=== PATIENT | female | born 1940 | race African-American/Black ===

== ENCOUNTER 2019-02-26 13:07 | Emergency (ER) | payer MEDICARE, MEDICAID ==
[~2019-02-26] VITALS: Ht 157.5 cm; Wt 78.5 kg
[2019-02-26 14:10] LABS: Basophils # (auto) 0 uL; Basophils % (auto) 0.5 % (0.0-2.0); Eosinophils # (auto) 0 uL; Eosinophils % (auto) 0.5 % (0.0-7.0); Hematocrit 44.4 % (36.0-46.0); Hemoglobin 14.3 g/dL (12.2-16.2); Lymphocytes # (auto) 1.3 uL; Lymphocytes % (auto) 17.8 % (10.0-50.0); Mean Corpuscular Hemoglobin 27.7 pg (28.0-32.0); Mean Corpuscular Hgb Conc. 32.1 g/dL (32.0-36.0); Mean Corpuscular Volume 86.4 fL (80.0-100.0); Monocytes # (auto) 0.3 uL; Monocytes % (auto) 4.4 % (0.0-12.0); Neutrophils # (auto) 5.5 uL; Neutrophils % (auto) 76.8 % (37.0-80.0); Platelet Count (auto) 228 10^3/uL (140-450); Red Blood Cells 5.14 10^6/uL (4.0-5.20); Red Cell Distribution Width 13.9 % (11.8-14.3); White Blood Cell 7.1 10^3/uL (4.4-10.8)
[2019-02-26 14:31] LABS: Albumin 4.3 g/dL (3.4-5.0); Anion Gap 7 (5-15); Blood Urea Nitrogen 10 mg/dL (7-18); Calcium 9.2 mg/dL (8.5-10.1); Carbon Dioxide 24 mmol/L (21-32); Chloride 109 mmol/L (98-107); Glucose 175 mg/dL (74-106); Potassium 3.8 mmol/L (3.5-5.1); Sodium 140 mmol/L (136-145)
[2019-02-26 14:36] LABS: Alanine Aminotransferase 24 U/L (13-56); Alkaline Phosphatase 57 U/L (45-117); Aspartate Aminotransferase 15 U/L (15-37); BUN/Creatinine Ratio 10.8; Bilirubin, Total 0.3 mg/dL (0.2-1.0); GFR African American 75 mL/min; GFR Non-African American 62 mL/min; Total Protein 8.6 g/dL (6.4-8.2)
[2019-02-26] MEDS: LORazepam 0.5 MG TAB PO ONE (14:45)
[2019-02-26] MEDS ORDERED: LORazepam 0.5 MG TAB PO ONE (16:00)
[2019-02-26 16:01] VITALS: BP 180/77
[2019-02-26 16:39] LABS: Urine WBC None Seen /hpf (0 - 5)
[2019-02-26 16:48] LABS: Urine Bacteria NONE SEEN /hpf (None Seen); Urine Blood Negative /uL (Negative); Urine Specific Gravity 1.009 (1.001-1.035)
== END 2019-02-26 17:16 | disposition home or self-care (01) ==
LOC: ER 13:13
DX: G40.909 Epilepsy, unspecified, not intractable, without status epilepticus (principal); F41.9 Anxiety disorder, unspecified; R42 Dizziness and giddiness
CPT/HCPCS: 36415; 70450; 71045; 80053; 81001; 84484; 85025

== ENCOUNTER 2024-07-01 20:46 | Emergency (ER) | payer MEDICARE, MEDICAID ==
[~2024-07-01] VITALS: Ht 157.5 cm; Wt 72.2 kg
--- NOTE | 2024-07-01 21:25 | ED.PDOC ---
HPI Comments 83 y.o female with PMHx of HTN and thyroid disease, presents to the ED for an evaluation of HTN x 2 weeks that is now associated with dizziness, nausea and SOB. Patient presents to the ED with blood pressure reading 224/86 although patient and caregiver reported pressure has been reading much higher than that at home, multiple times. Patient is compliant with all medications including today's doses. Patient denies any chest pain, nausea, vomiting, fever or chills. Time Seen by MD: 21:18 Primary Care Provider: DENIES Reviewed Notes: Nurses Notes, Medications, Allergies Allergies: Coded Allergies: Acetaminophen (Verified Allergy, Severe, 02/26/19) Codeine (Verified Allergy, Severe, 02/26/19) Penicillins (Verified Allergy, Severe, 02/26/19) Information Source: Patient Mode of Arrival: Ambulatory Severity: Moderate Timing: Weeks (2) Duration: Since onset Onset: At Rest Cardiac Risk Factors: HTN PE Risk Factors: None History of: None Modifying Factors: Nothing Associated Signs and Symptoms: SOB Past Medical History PAST MEDICAL HISTORY: HTN, Seizures, Thyroid Surgical History: Thyroidectomy Surgical History (Other): neck and shoulder 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: 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 CUTTER Hx Family History Family History: Reviewed,noncontributory to illness Social History Smoker: Non-Smoker Alcohol: Denies ETOH Use Drugs: Denies Drug Use Lives In: Home Constitutional: denies: chills, diaphoresis, fatigue, fever, malaise, sweats, weakness, others EENTM: denies: blurred vision, double vision, ear bleeding, ear discharge, ear drainage, ear pain, ear ringing, eye pain, eye redness, hearing loss, mouth pain, mouth swelling, nasal discharge, nose bleeding, nose congestion, nose pain, photophobia, tearing, throat pain, throat swelling, voice changes, others Respiratory: reports: shortness of breath; denies: cough, hemoptysis, orthopnea, SOB at rest, SOB with excertion, stridor, wheezing, others Cardiovascular: denies: chest pain, dizzy spells, diaphoresis, Dyspnea on exertion, edema, irregular heart beat, left arm pain, lightheadedness, palpitations, PND, syncope, others Gastrointestinal: reports: nausea; denies: abdomen distended, abdominal pain, blood streaked bowels, constipated, diarrhea, dysphagia, difficulty swallowing, hematemesis, melena, poor appetite, poor fluid intake, rectal bleeding, rectal pain, vomiting, others Genitourinary: denies: abnormal vagina bleeding, burning, dyspareunia, dysuria, flank pain, frequency, hematuria, incontinence, pain, , vagina discharge, urgency, others Neurological: reports: dizziness; denies: fainting, headache, left sided numbness, left sided weakness, numbness, paresthesia, pre-existing deficit, right sided numbness, right sided weakness, seizure, speech problems, tingling, tremors, weakness, others Musculoskeletal: denies: back pain, gout, joint pain, joint swelling, muscle pain, muscle stiffness, neck pain, others Integumetry: denies: bruises, change in color, change in hair/nails, dryness, laceration, lesions, lumps, rash, wounds, others Allergic/Immunocompromised: denies: Difficulty Healing, Frequent Infections, Hives, Itching, others Hematologic/Lymphatic: denies: anemia, blood clots, easy bleeding, easy bruising, swollen glands, others Endocrine: denies: excessive hunger, excessive sweating, excessive thirst, excessive urination, flushing, intolerance to cold, intolerance to heat, unexplained weight gain, unexplained weight loss, others Psychiatric: denies: anxiety, bipolar disorder, depression, hopeless, panic disorder, schizophrenia, sleepless, suicidal, others All Other Systems: Reviewed and Negative Physical Exam General Appearance: No Apparent Distress, Normal HEENT: Normal ENT Inspection, Pharynx Normal, TMs Normal Neck: Full Range of Motion, Non-Tender, Normal, Normal Inspection Respiratory: Chest Non-Tender, Lungs Clear, No Accessory Muscle Use, No Respiratory Distress, Normal Breath Sounds Cardiovascular: No Edema, No JVD, No Murmur, No Gallop, Normal Peripheral Pulses, Regular Rate/Rhythm Breast Exam: Deferred Gastrointestinal: No Organomegaly, Non Tender, No Pulsatile Mass, Normal Bowel Sounds, Soft Genitalia: Deferred Pelvic: Deferred Rectal: Deferred Extremities: No calf tenderness, Normal capillary refill, Normal inspection, Normal range of motion, Non-tender, No pedal edema Musculoskeletal : Apperance: Normal Neurologic: Alert, sociology faculty member II-XII nml as Tested, No Motor Deficits, Normal Affect, Normal Mood, No Sensory Deficits Cerebellar Function: Normal Reflexes: Normal Skin: Dry, Normal Color, Warm Lymphatic: No Adenopathy Was a procedure done? Was a procedure done?: No CP Differential Dx Differential Diagnosis: N/A Differential Diagnosis: CHF, HTN Essential, HTN Accelerated, HTN Encephalopathy X-Ray, Labs, Meds, VS Vital Signs Date Time Temp Pulse Resp B/P (MAP) Pulse Ox O2 Delivery O2 Flow Rate FiO2 07/01/24 21:28 67 07/01/24 21:14 98.1 76 14 224/86 (132) 96 98.1 Lab Test 07/01/24 22:47 07/01/24 21:42 Range/Units Troponin I High Sensitivity 20 18 </=34 ng/L White Blood Count 6.1 4.4-10.8 10^3/uL Red Blood Count 5.09 4.0-5.20 10^6/uL Hemoglobin 14.3 12.2-16.2 g/dL Hematocrit 43.4 36.0-46.0 % Mean Corpuscular Volume 85.3 80.0-100.0 fL Mean Corpuscular Hemoglobin 28.0 28.0-32.0 pg Mean Corpuscular Hemoglobin Concent 32.9 32.0-36.0 g/dL Red Cell Distribution Width 15.0 H 11.8-14.3 % Platelet Count 217 140-450 10^3/uL Mean Platelet Volume 8.4 6.9-10.8 fL Neutrophils (%) (Auto) 67.7 37.0-80.0 % Lymphocytes (%) (Auto) 25.5 10.0-50.0 % Monocytes (%) (Auto) 5.2 0.0-12.0 % Eosinophils (%) (Auto) 1.0 0.0-7.0 % Basophils (%) (Auto) 0.6 0.0-2.0 % Neutrophils # (Auto) 4.1 1.6-8.6 10 ^3/uL Lymphocytes # (Auto) 1.6 0.4-5.4 10 ^3/uL Monocytes # (Auto) 0.3 0-1.3 10 ^3/uL Eosinophils # (Auto) 0.1 0-0.8 10 ^3/uL Basophils # (Auto) 0 0-0.2 10 ^3/uL Nucleated Red Blood Cells 0.0 % Sodium Level 142 136-145 mmol/L Potassium Level 3.6 3.5-5.1 mmol/L Chloride Level 106 98-107 mmol/L Carbon Dioxide Level 27 20-31 mmol/L Anion Gap 9 5-15 Blood Urea Nitrogen 10 9-23 mg/dL Creatinine 0.98 0.550-1.02 mg/dL Glomerular Filtration Rate Calc 58 >90 mL/min BUN/Creatinine Ratio 10.2 10.0-20.0 Serum Glucose 126 H 74-106 mg/dL Calcium Level 10.3 8.7-10.4 mg/dL Total Bilirubin 0.4 0.2-1.0 mg/dL Aspartate Amino Transferase (AST) 15 13-40 U/L Alanine Aminotransferase (ALT) 16 7-40 U/L Alkaline Phosphatase 63 46-116 U/L Total Protein 7.9 5.7-8.2 g/dL Albumin 5.1 H 3.2-4.8 g/dL X-Ray, Labs, Meds, VS Comment Imaging: X-rays and CT scans were reviewed and interpreted by this provider, imaging shows no fractures and no pathological disease. Pending radiology review. Laboratory: Labs reviewed and interpreted by this provider. No significant abnormalities noted. Patient has prior medical visits reviewed. Med reconciliation performed Vital signs reviewed Time of 1ST Reevaluation: 21:22 Reevaluation 1ST: Unchanged Patient Education/Counseling: Diagnosis, Treatment, Prognosis, Need For Follow Up (Follow up in the emergency department in the next 24-48 hours if symptoms worsen. It was advised to follow up with your primary care doctor in the next 3-4 days for further evaluation.) Family Education/Counseling: Diagnosis, Treatment, Prognosis Departure 1 Departure Time of Disposition: 23:51 Impression: Primary Impression: Hypertensive urgency Disposition: 01 HOME / SELF CARE / HOMELESS Condition: Fair e-Prescriptions Amlodipine Besylate (Amlodipine Besylate) 5 Mg Tab 1 TAB PO DAILY, #30 TAB 5 Refills Prov: CARMITA WINCHESTER 07/02/24 Discharged With: Self Critical Care Note Critical Care Time?: No Stability Stability form required: No Heart Score Heart Score: Heart Score Response (Comments) Value History N/A 0 EKG N/A 0 Age N/A 0 Risk Factors N/A 0 Troponin N/A 0 Total 0 I personally scribed for CARMITA WINCHESTER ([email or web address] on 07/01/24 at 21:25. Electronically submitted by Rossy Baker ([facility]). CARMITA WINCHESTER Jul 01, 2024 21:25
--- NOTE | 2024-07-01 21:37 | ECG ---
[facility] Test Date: 2024-07-01 Test Time: 21:28:34 Pat Name: EMERSON BAEZA Department: ED Room: Gender: F Superintendent System Operation: : 1940 Requested By: CARMITA WINCHESTER Order Number: [id number] Reading MD: James Javed Measurements Intervals [place] Rate: 67 P: 68 [place]: 204 QRS: -44 QRSD: 148 T: -35 QT: 421 QTc: 445 Interpretive Statements Sinus rhythm RBBB and LAFB Electronically Signed On 07-05-2024 20:37:18 PDT by James Javed Please click the below link to view image of tracing.
[2024-07-01 21:56] LABS: Basophils # (auto) 0 10 ^3/uL (0-0.2); Basophils % (auto) 0.6 % (0.0-2.0); Eosinophils # (auto) 0.1 10 ^3/uL (0-0.8); Hematocrit 43.4 % (36.0-46.0); Hemoglobin 14.3 g/dL (12.2-16.2); Lymphocytes # (auto) 1.6 10 ^3/uL (0.4-5.4); Lymphocytes % (auto) 25.5 % (10.0-50.0); Mean Corpuscular Hgb Conc. 32.9 g/dL (32.0-36.0); Mean Corpuscular Volume 85.3 fL (80.0-100.0); Monocytes # (auto) 0.3 10 ^3/uL (0-1.3); Monocytes % (auto) 5.2 % (0.0-12.0); Neutrophils # (auto) 4.1 10 ^3/uL (1.6-8.6); Neutrophils % (auto) 67.7 % (37.0-80.0); Platelet Count (auto) 217 10^3/uL (140-450); Red Blood Cells 5.09 10^6/uL (4.0-5.20); White Blood Cell 6.1 10^3/uL (4.4-10.8)
--- NOTE | 2024-07-01 21:58 | DVH ---
CHEST RADIOGRAPH Indication: cp Technique: Single frontal view of the chest was obtained Comparison: None FINDINGS: Lines and Tubes: None Lungs: Clear Pleura: No effusion. No pneumothorax. Cardiomediastinal contours: Unremarkable Bones: Unremarkable IMPRESSION: Clear lungs.
[2024-07-01 22:13] LABS: Alanine Aminotransferase 16 U/L (7-40); Alkaline Phosphatase 63 U/L (46-116); Anion Gap 9 (5-15); Aspartate Aminotransferase 15 U/L (13-40); BUN/Creatinine Ratio 10.2 (10.0-20.0); Blood Urea Nitrogen 10 mg/dL (9-23); Calcium 10.3 mg/dL (8.7-10.4); Carbon Dioxide 27 mmol/L (20-31); Chloride 106 mmol/L (98-107); Potassium 3.6 mmol/L (3.5-5.1); Sodium 142 mmol/L (136-145); Total Protein 7.9 g/dL (5.7-8.2)
[2024-07-01 22:14] LABS: Albumin 5.1 g/dL (3.2-4.8); Bilirubin, Total 0.4 mg/dL (0.2-1.0); Glucose 126 mg/dL (74-106)
[2024-07-02] MEDS ORDERED: AMLO1TAB22 PO (00:19)
[2024-07-02 01:02] VITALS: BP 156/72; TEMP 97.8
[2024-07-02 01:11] VITALS: PULSE 72; RESP 20; O2SAT 97
[2024-07-02] MEDS ORDERED: ACETAMINOPHEN 325 MG TAB PO ONE (01:15)
[2024-07-03] MEDS ORDERED: ATEN50TA PO (08:32)
== END 2024-07-02 01:18 | disposition home or self-care (01) ==
LOC: ER 20:46
DX: I16.0 Hypertensive urgency (principal); R42 Dizziness and giddiness; R06.02 Shortness of breath; E03.9 Hypothyroidism, unspecified; Z90.89 Acquired absence of other organs; Z88.0 Allergy status to penicillin; Z88.5 Allergy status to narcotic agent
CPT/HCPCS: 36415; 71045; 80053; 84484; 85025; 93005

== ENCOUNTER 2024-07-02 16:17 | Inpatient (IN) | payer MEDICARE, MEDICAID ==
[~2024-07-02] VITALS: Ht 157.5 cm; Wt 71.9 kg
[~2024-07-02 16:17] MED LIST: AMLO1TAB22 PO
--- NOTE | 2024-07-02 17:44 | ED.PDOC ---
HPI Comments 83 y.o female with PMHx of HTN and thyroid disease, presents to the ED for an evaluation of HTN x 6 days that is now associated with a generalized headache, left sided chest discomfort, weakness, nausea and SOB. Patient presents to the ED with blood pressure reading at 238/99, although patient and caregiver reported pressure has been reading much higher than that at home, multiple times. Patient was seen at this ED yesterday, was given BP medication and prescribed some to take at home but states she did not take it as she was concerned about the elevated pressure today. Patient decided to come in today once again as headache presented in the morning and states feeling generally malaise. Patient is compliant with all medications including today's doses. Patient denies any fever, chills, leg swelling, or vision changes. Chief Complaint: High Blood Pressure Time Seen by MD: 17:32 Primary Care Provider: LARISA Reviewed Notes: Nurses Notes, Medications, Allergies Allergies: Coded Allergies: Codeine (Verified Allergy, Severe, 02/26/19) Penicillins (Verified Allergy, Severe, 02/26/19) Home Meds Active Scripts Amlodipine Besylate (Amlodipine Besylate) 5 Mg Tab, 1 TAB PO DAILY, #30 TAB 5 Refills Prov:CARMITA WINCHESTER Danii LAST DIPPER 07/02/24 Information Source: Patient Mode of Arrival: Ambulatory Severity: Moderate Timing: Days (6) Duration: Since onset Location: Chest (L) Radiation: No Radiation Quality: Aching Onset: At Rest Cardiac Risk Factors: Hyperlipidemia, HTN, Diabetes PE Risk Factors: None History of: Similar pain in past Modifying Factors: Nothing Past Medical History PAST MEDICAL HISTORY: HTN, Seizures, Thyroid Surgical History: Thyroidectomy 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 VALVE 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 Hx Family History Family History: Reviewed,noncontributory to illness Social History Smoker: Non-Smoker Alcohol: Denies ETOH Use Drugs: Denies Drug Use Lives In: Home Constitutional: reports: weakness; denies: chills, diaphoresis, fatigue, fever, malaise, sweats, others EENTM: denies: blurred vision, double vision, ear bleeding, ear discharge, ear drainage, ear pain, ear ringing, eye pain, eye redness, hearing loss, mouth pain, mouth swelling, nasal discharge, nose bleeding, nose congestion, nose pain, photophobia, tearing, throat pain, throat swelling, voice changes, others Respiratory: reports: shortness of breath; denies: cough, hemoptysis, orthopnea, SOB at rest, SOB with excertion, stridor, wheezing, others Cardiovascular: reports: chest pain; denies: dizzy spells, diaphoresis, Dyspnea on exertion, edema, irregular heart beat, left arm pain, lightheadedness, palpitations, PND, syncope, others Gastrointestinal: reports: nausea; denies: abdomen distended, abdominal pain, blood streaked bowels, constipated, diarrhea, dysphagia, difficulty swallowing, hematemesis, melena, poor appetite, poor fluid intake, rectal bleeding, rectal pain, vomiting, others Genitourinary: denies: abnormal vagina bleeding, burning, dyspareunia, dysuria, flank pain, frequency, hematuria, incontinence, pain, , vagina discharge, urgency, others Neurological: reports: headache; denies: dizziness, fainting, left sided numbness, left sided weakness, numbness, paresthesia, pre-existing deficit, right sided numbness, right sided weakness, seizure, speech problems, tingling, tremors, weakness, others Musculoskeletal: denies: back pain, gout, joint pain, joint swelling, muscle pain, muscle stiffness, neck pain, others Integumetry: denies: bruises, change in color, change in hair/nails, dryness, laceration, lesions, lumps, rash, wounds, others Allergic/Immunocompromised: denies: Difficulty Healing, Frequent Infections, Hives, Itching, others Hematologic/Lymphatic: denies: anemia, blood clots, easy bleeding, easy bruising, swollen glands, others Endocrine: denies: excessive hunger, excessive sweating, excessive thirst, excessive urination, flushing, intolerance to cold, intolerance to heat, unexplained weight gain, unexplained weight loss, others Psychiatric: denies: anxiety, bipolar disorder, depression, hopeless, panic disorder, schizophrenia, sleepless, suicidal, others All Other Systems: Reviewed and Negative Physical Exam General Appearance: Moderate Distress HEENT: Normal ENT Inspection, Pharynx Normal, TMs Normal Neck: Full Range of Motion, Non-Tender, Normal, Normal Inspection Respiratory: Chest Non-Tender, Lungs Clear, No Accessory Muscle Use, No Respiratory Distress, Normal Breath Sounds Cardiovascular: No Edema, No JVD, No Murmur, No Gallop, Normal Peripheral Pulses, Regular Rate/Rhythm Breast Exam: Deferred Gastrointestinal: No Organomegaly, Non Tender, No Pulsatile Mass, Normal Bowel Sounds, Soft Genitalia: Deferred Pelvic: Deferred Rectal: Deferred Extremities: No calf tenderness, Normal capillary refill, Normal inspection, Normal range of motion, Non-tender, No pedal edema Musculoskeletal : Apperance: Normal Neurologic: Alert, service observer chief II-XII nml as Tested, No Motor Deficits, Normal Affect, Normal Mood, No Sensory Deficits Cerebellar Function: Normal Reflexes: Normal Skin: Dry, Normal Color, Warm Lymphatic: No Adenopathy Was a procedure done? Was a procedure done?: No CP Differential Dx Differential Diagnosis: N/A Differential Diagnosis: HTN Essential, HTN Accelerated X-Ray, Labs, Meds, VS Vital Signs Date Time Temp Pulse Resp B/P (MAP) Pulse Ox O2 Delivery O2 Flow Rate FiO2 07/02/24 20:15 67 16 192/71 (111) 96 07/02/24 18:49 208/94 07/02/24 18:09 64 16 208/94 (132) 95 07/02/24 17:50 60 07/02/24 16:28 98.4 72 16 236/99 (144) 97 98.4 Lab Test 07/02/24 18:57 07/02/24 17:59 Range/Units Troponin I High Sensitivity 17 23 </=34 ng/L White Blood Count 7.6 4.4-10.8 10^3/uL Red Blood Count 5.13 4.0-5.20 10^6/uL Hemoglobin 14.3 12.2-16.2 g/dL Hematocrit 44.3 36.0-46.0 % Mean Corpuscular Volume 86.2 80.0-100.0 fL Mean Corpuscular Hemoglobin 27.8 L 28.0-32.0 pg Mean Corpuscular Hemoglobin Concent 32.3 32.0-36.0 g/dL Red Cell Distribution Width 14.8 H 11.8-14.3 % Platelet Count 209 140-450 10^3/uL Mean Platelet Volume 8.7 6.9-10.8 fL Neutrophils (%) (Auto) 69.3 37.0-80.0 % Lymphocytes (%) (Auto) 24.2 10.0-50.0 % Monocytes (%) (Auto) 5.6 0.0-12.0 % Eosinophils (%) (Auto) 0.5 0.0-7.0 % Basophils (%) (Auto) 0.4 0.0-2.0 % Neutrophils # (Auto) 5.3 1.6-8.6 10 ^3/uL Lymphocytes # (Auto) 1.8 0.4-5.4 10 ^3/uL Monocytes # (Auto) 0.4 0-1.3 10 ^3/uL Eosinophils # (Auto) 0 0-0.8 10 ^3/uL Basophils # (Auto) 0 0-0.2 10 ^3/uL Nucleated Red Blood Cells 0.1 % Sodium Level 141 136-145 mmol/L Potassium Level 4.1 3.5-5.1 mmol/L Chloride Level 105 98-107 mmol/L Carbon Dioxide Level 27 20-31 mmol/L Anion Gap 9 5-15 Blood Urea Nitrogen 9 9-23 mg/dL Creatinine 0.84 0.550-1.02 mg/dL Glomerular Filtration Rate Calc 70 >90 mL/min BUN/Creatinine Ratio 10.7 10.0-20.0 Serum Glucose 93 74-106 mg/dL Calcium Level 10.8 H 8.7-10.4 mg/dL Current Medications Medications (Trade) Dose Ordered Sig/Rosa Route Start Time Stop Time Status Last Admin Hydralazine HCl (Apresoline Injection) 10 mg ONCE ONCE IV 07/02/24 17:45 07/02/24 17:46 DC 07/02/24 18:49 Acetaminophen (Tylenol Tablet) 650 mg ONCE ONCE PO 07/02/24 20:00 07/02/24 20:01 DC 07/02/24 20:03 IV Hep-Lock was established. The patient was given hydralazine 10 mg IV push The patient was given acetaminophen 650 mg by mouth The patient's CBC and chemistry panel are within normal limits The patient's blood pressure remains elevated The patient will be admitted with a diagnosis of accelerated hypertension Time of 1ST Reevaluation: 17:40 Reevaluation 1ST: Unchanged Patient Education/Counseling: Diagnosis, Treatment, Prognosis Family Education/Counseling: No Family Present Departure 1 Departure Time of Disposition: 21:03 Impression: Primary Impression: Accelerated hypertension Disposition: ADMITTED INPATIENT Admit to: [facility] Condition: Fair Critical Care Note Critical Care Time?: Yes (45 min-critical care time only) Stability Stability form required: Yes Unstable for transfer: Telemetry monitoring (Telemetry monitoring required), ED Physician Assesment (Clinical assesment) Heart Score Heart Score: Heart Score Response (Comments) Value History Slightly Suspicious 0 EKG Normal 0 Age >65 2 Risk Factors >3 or Hx ASHD 2 Troponin Normal limit 0 Total 4 I personally scribed for ABRAHAM DAMICO MD ([email or web address]) on 07/02/24 at 17:44. Electronically submitted by Rossy Baker ([facility]). ABRAHAM DAMICO MD Jul 02, 2024 17:44
[2024-07-02 18:19] LABS: Basophils # (auto) 0 10 ^3/uL (0-0.2); Basophils % (auto) 0.4 % (0.0-2.0); Eosinophils # (auto) 0 10 ^3/uL (0-0.8); Eosinophils % (auto) 0.5 % (0.0-7.0); Hematocrit 44.3 % (36.0-46.0); Hemoglobin 14.3 g/dL (12.2-16.2); Lymphocytes # (auto) 1.8 10 ^3/uL (0.4-5.4); Lymphocytes % (auto) 24.2 % (10.0-50.0); Mean Corpuscular Hemoglobin 27.8 pg (28.0-32.0); Mean Corpuscular Hgb Conc. 32.3 g/dL (32.0-36.0); Mean Corpuscular Volume 86.2 fL (80.0-100.0); Monocytes # (auto) 0.4 10 ^3/uL (0-1.3); Monocytes % (auto) 5.6 % (0.0-12.0); Neutrophils # (auto) 5.3 10 ^3/uL (1.6-8.6); Neutrophils % (auto) 69.3 % (37.0-80.0); Nucleated Red Blood Cells % 0.1 %; Platelet Count (auto) 209 10^3/uL (140-450); Red Blood Cells 5.13 10^6/uL (4.0-5.20); Red Cell Distribution Width 14.8 % (11.8-14.3); White Blood Cell 7.6 10^3/uL (4.4-10.8)
--- NOTE | 2024-07-02 18:28 | DVH ---
EXAM: XR Chest, 2 Views CLINICAL INDICATION: cp TECHNIQUE: Frontal and lateral views of the chest. COMPARISON: None FINDINGS: LUNGS AND PLEURAL SPACES: Unremarkable. No consolidation. No pneumothorax. HEART: Unremarkable. No cardiomegaly. MEDIASTINUM: Unremarkable. Normal mediastinal contour. BONES/JOINTS: Unremarkable. No acute fracture. OTHER FINDINGS: . None. IMPRESSION: No acute cardiopulmonary process.
[2024-07-02 18:29] LABS: Chloride 105 mmol/L (98-107); Potassium 4.1 mmol/L (3.5-5.1); Sodium 141 mmol/L (136-145)
[2024-07-02 18:30] LABS: Anion Gap 9 (5-15); Carbon Dioxide 27 mmol/L (20-31)
[2024-07-02 18:35] LABS: BUN/Creatinine Ratio 10.7 (10.0-20.0); Blood Urea Nitrogen 9 mg/dL (9-23); Glucose 93 mg/dL (74-106)
[2024-07-02 18:36] LABS: Calcium 10.8 mg/dL (8.7-10.4)
[2024-07-02] MEDS: hydrALAZINE HCL 20 MG/ML VL IV ONE (18:49)
--- NOTE | 2024-07-02 19:11 | ECG ---
[facility] Test Date: 2024-07-02 Test Time: 17:50:53 Pat Name: EMERSON BAEZA Department: ER Room: 0278 Gender: F Clinical Informaticist: SARAH : 1940 Requested By: ABRAHAM DAMICO Order Number: [id number] Reading MD: James Javed Measurements Intervals [place] Rate: 60 P: 69 [place]: 211 QRS: -37 QRSD: 141 T: -37 QT: 447 QTc: 447 Interpretive Statements Sinus rhythm Consider left atrial enlargement Right bundle branch block Electronically Signed On 07-05-2024 20:41:20 PDT by James Javed Please click the below link to view image of tracing.
[2024-07-02] MEDS: ACETAMINOPHEN 325 MG TAB PO ONE (20:03)
[2024-07-02 21:06] VITALS: PULSE 78; RESP 20; O2SAT 93
[2024-07-02 21:13] LABS: Urine Bacteria None Seen /hpf (None Seen)
[2024-07-02 21:31] LABS: Urine Blood Negative /uL (Negative); Urine Clarity Clear (Clear); Urine Color Light-Yellow (Yellow); Urine Protein, UAD Negative (Negative); Urine Specific Gravity 1.007 (1.001-1.035); Urine Squamous Epithelial Cell FEW /hpf (<5); Urine Urobilinogen Normal (Negative); Urine WBC < 1 /HPF (0-5)
[2024-07-02] MEDS: IBUPROFEN 400 MG TAB PO ONE (23:14)
[2024-07-03] VITALS (7 sets, daily range): BP systolic 114–181; BP diastolic 61–81; PULSE 68–83; RESP 16–22; TEMP 98.1–98.9; O2SAT 93–97
[2024-07-03] MEDS: ENALAPRILAT 1.25 MG/ML-1ML VIAL IV ONE ×2 (03:00→06:38)
--- NOTE | 2024-07-03 03:28 | ECG ---
[facility] Test Date: 2024-07-03 Test Time: 03:24:51 Pat Name: EMERSON BAEZA Department: ed Room: [facility] Gender: F Anesthesia Resident: wilfred : 1940 Requested By: DAVE CORRIGAN Order Number: [id number] Reading MD: James Javed Measurements Intervals [place] Rate: 59 P: 66 [place]: 184 QRS: -30 QRSD: 147 T: -44 QT: 454 QTc: 450 Interpretive Statements Sinus rhythm Right bundle branch block Left ventricular hypertrophy Baseline wander in lead(s) V5 Electronically Signed On 07-05-2024 20:43:32 PDT by James Javed Please click the below link to view image of tracing.
[2024-07-03] MEDS: hydrALAZINE HCL 20 MG/ML VL IV ONE (04:00)
--- NOTE | 2024-07-03 06:25 | DVHHPRES ---
History of Present Illness Resident Creating Document: DAVE CORRIGAN RESIDENT History of Present Illness 83 F with PMH of HTN, thyroid ds s/p surgery, DM2, sleep apnea uses CPAP at home, presented with complaints of dizziness, N/V, dyspnea. pt was found to be in hypertensive crisis in the ER. Presented with similar complaints yesterday in the ER, was discharged on amlodipine but could not take the medications. pt was given IV hydralazine in the ER but BP is still in the hypertensive crisis range mentioned headache, but denied seizures, cough, hemoptysis, diarrhea. PMH HTN, thyroid ds s/p surgery, DM2, sleep apnea uses CPAP at home PSH Denied recent surgery Family history non significant Social history denied smoking, alcohol, marijuana, and any other recreational intake Medication history Alisartan Clonidine atenolol amlodipine Review of Systems Review of Systems ROS Constitutional: No: Fever, Chills, Sweats, Weakness, Malaise, Other Eyes: No: Pain, Vision change, Conjunctivae inflammation, Eyelid inflammation, Other, Redness ENT: No: Ear pain, Ear discharge, Nose pain, Nose discharge, Nose congestion, Mouth pain, Mouth swelling, Throat pain, Throat swelling, Other Respiratory: No, Wheezing, Hemoptysis, Pleuritic Pain, Sputum, Wheezing, Other Cardiovascular: chest pain, sob, No: Orthopnea, Paroxysmal Noc. Dyspnea, Edema, Lt Headedness, Other Gastrointestinal: No: Nausea, Vomiting, Abdominal Pain, Diarrhea, Constipation, Melena, Hematochezia, Other Musculoskeletal: No: other, neck pain, shoulder pain, arm pain, back pain, hand pain, leg pain, foot pain Neurological:; No: Weakness, Numbness, Incoordination, Change in speech, Confusion, Seizures Allergies: Coded Allergies: Codeine (Verified Allergy, Severe, 02/26/19) Penicillins (Verified Allergy, Severe, 02/26/19) Exam Vital Signs Vital Signs Date Time Temp Pulse Resp B/P (MAP) Pulse Ox O2 Delivery O2 Flow Rate FiO2 07/03/24 04:00 192/71 07/03/24 03:24 59 07/03/24 03:00 16 94 07/02/24 21:06 Nasal Cannula* 3 32 07/02/24 16:28 98.4 98.4 Exam Examination General Appearance: Alert, Oriented X3, Cooperative, No acute distress HEENT: EOMI Respiratory: Clear to auscultation, Normal air movement Cardiovascular: Regular rate, Normal S1, Normal S2 Abdominal: Normal bowel sounds Extremities: No cyanosis, No edema, Normal pulses, No tenderness/swelling Skin: No rashes, No breakdown Neuro: Normal gait, Normal speech, Strength at 5/5 X4 ext, Normal tone, Sensation intact, Cranial nerves 3-12 NL, Reflexes 2+ Psych/Mental Status: Mental status NL, Mood NL Labs/Xrays Labs Test 07/03/24 04:44 07/02/24 21:00 07/02/24 17:59 Range/Units Troponin I High Sensitivity 21 </=34 ng/L Urine Color Light-yellow Yellow Urine Clarity Clear Clear Urine pH 7.0 5.0-9.0 Urine Specific [place] 1.007 1.001-1.035 Urine Protein Negative Negative Urine Ketones Negative Negative Urine Blood Negative Negative /uL Urine Nitrite Negative Negative Urine Bilirubin Negative Negative Urine Urobilinogen Normal Negative mg/dL Urine Leukocyte Esterase Negative Negative /uL Urine RBC 1 0 - 4 /hpf Urine Microscopic WBC < 1 0-5 /HPF Urine Squamous Epithelial Cells Few <5 /hpf Urine Bacteria None seen None Seen /hpf Urine Glucose Normal Normal mg/dL White Blood Count 7.6 4.4-10.8 10^3/uL Red Blood Count 5.13 4.0-5.20 10^6/uL Hemoglobin 14.3 12.2-16.2 g/dL Hematocrit 44.3 36.0-46.0 % Mean Corpuscular Volume 86.2 80.0-100.0 fL Mean Corpuscular Hemoglobin 27.8 L 28.0-32.0 pg Mean Corpuscular Hemoglobin Concent 32.3 32.0-36.0 g/dL Red Cell Distribution Width 14.8 H 11.8-14.3 % Platelet Count 209 140-450 10^3/uL Mean Platelet Volume 8.7 6.9-10.8 fL Neutrophils (%) (Auto) 69.3 37.0-80.0 % Lymphocytes (%) (Auto) 24.2 10.0-50.0 % Monocytes (%) (Auto) 5.6 0.0-12.0 % Eosinophils (%) (Auto) 0.5 0.0-7.0 % Basophils (%) (Auto) 0.4 0.0-2.0 % Neutrophils # (Auto) 5.3 1.6-8.6 10 ^3/uL Lymphocytes # (Auto) 1.8 0.4-5.4 10 ^3/uL Monocytes # (Auto) 0.4 0-1.3 10 ^3/uL Eosinophils # (Auto) 0 0-0.8 10 ^3/uL Basophils # (Auto) 0 0-0.2 10 ^3/uL Nucleated Red Blood Cells 0.1 % Sodium Level 141 136-145 mmol/L Potassium Level 4.1 3.5-5.1 mmol/L Chloride Level 105 98-107 mmol/L Carbon Dioxide Level 27 20-31 mmol/L Anion Gap 9 5-15 Blood Urea Nitrogen 9 9-23 mg/dL Creatinine 0.84 0.550-1.02 mg/dL Glomerular Filtration Rate Calc 70 >90 mL/min BUN/Creatinine Ratio 10.7 10.0-20.0 Serum Glucose 93 74-106 mg/dL Calcium Level 10.8 H 8.7-10.4 mg/dL Assessment/Plan Assessment/Plan A and P #Hypertensive crisis, likely urgency -IV enalaprilat and IV hydralazine given -resume home meds -ekg, trops -BMP, urine protein #s/p Thyroid surgery -TSH #DM2 -monitor BS #Sleep apnea -nocturnal CPAP Case discussion with dr Andrade Plan discussed with: Other My Orders Orders - DAVE CORRIGAN RESIDENT Procedure Category Date Status Time Admit ADMIT 07/03/24 Transmitted 02:00 Oxygen By Nasal RT 07/03/24 Transmitted Cannula 02:00 Stat Ekg For Chest [facility] 07/03/24 In Process Pain 02:00 Notify Of Changes [facility] 07/03/24 In Process From Base 02:00 Loom Tuner For [facility] 07/03/24 In Process 24 Hours 02:00 Emergency Dysrhythmia [facility] 07/03/24 In Process Protocol 02:00 Rhythm Strips Once [facility] 07/03/24 In Process Every Shift 02:00 Urine Protein LAB 07/03/24 Logged 02:00 Urine LAB 07/03/24 Logged Protein/Creatinine Electrocardigram EKG 07/03/24 Logged 04:27 Electrocardigram EKG 07/03/24 Logged 06:27 Troponin-I Hs LAB 07/03/24 Logged 04:27 Troponin-I Hs LAB 07/03/24 Logged 06:27 DAVE CORRIGAN RESIDENT Jul 03, 2024 06:24
[2024-07-03] MEDS: ACETAMINOPHEN 325 MG TAB PO ONE (06:48)
[2024-07-03] MEDS ORDERED: ATEN50TA PO (08:32)
[2024-07-03] MEDS: amLODIPine BESYLATE 5 MG TAB PO SCH (09:49)
--- NOTE | 2024-07-03 10:23 | DVH ---
CT HEAD WITHOUT CONTRAST INDICATION: hypertention urgency , headache EXAM DATE: 07/03/2024 09:58 AM COMPARISON: None RADIATION DOSE: CTDIvol: 56.99 mGy, DLP: 1009.1 mGy*cm PROCEDURE: CT scans of the head were obtained from the vertex to the skull base. Sagittal and coronal reconstructions were provided. All CT scans at this medical facility are performed using dose modulation techniques as appropriate t o a performed exam including the following: Automated exposure control was utilized; adjustment of th e MA and/or KV according to patient size; and use of iterative reconstruction technique. FINDINGS: There is sulcal and ventricular prominence. The brainshows normal morphology and valdez-whi te matter differentiation, without intracranial hemorrhage, extra-axial fluid collection, mass effect or acute large vessel infarct. The ventricles are normal in size. The basal cisterns are patent. The skull and visible facial bones are intact. The paranasal sinuses, mastoid air cells and middle ear c avities are well-aerated. The soft tissues of the scalp are unremarkable. IMPRESSION: No acute intracranial abnormality.
[2024-07-03] MEDS: PANTOPRAZOLE 40 MG TAB PO ONE (10:41)
[2024-07-03] MEDS: ENOXAPARIN SOD 40 MG/0.4 ML SYRINGE SC SCH (10:42)
[2024-07-03] MEDS: IBUPROFEN 600 MG TAB PO PRN (16:27)
[2024-07-03] MEDS: ASPirin 81 mg TAB PO ONE (16:27)
--- NOTE | 2024-07-03 16:30 | DVHPNRES ---
Progress Note Date Seen: Jul 03, 2024 Resident Creating Document: ZOHRA LOVE RESIDENT Medical Necessity Reason Pt with a Central, PICC or Fol: No Subjective Review of Systems No new complaints. Objective vital signs Vital Sign Date Time Temp Pulse Resp B/P (MAP) Pulse Ox O2 Delivery O2 Flow Rate FiO2 07/03/24 12:39 98.9 77 16 135/81 (99) 96 98.9 07/03/24 06:24 Nasal Cannula* 3 32 medications Current Medications Medications Dose Ordered Sig/Rosa Route Start Time Stop Time Status Last Admin Dose Admin Amlodipine Besylate 5 mg DAILY PO 07/03/24 10:00 07/03/24 09:49 5 MG Enalaprilat 1.25 mg Q6HP PRN IV 07/03/24 06:30 Pantoprazole Sodium 40 mg DAILY@0600 PO 07/04/24 06:00 Acetaminophen 650 mg Q6HPRN PRN PO 07/03/24 10:00 Enoxaparin Sodium 40 mg DAILY SC 07/03/24 10:00 07/03/24 10:42 40 MG Aspirin 81 mg DAILY PO 07/04/24 10:00 Ibuprofen 600 mg Q8HP PRN PO 07/03/24 11:45 Examination General Appearance: Cooperative. Well developed. Well nourished. NAD Head Exam: Normal inspection Neck Exam: Normal inspection. Non-tender. Normal alignment Pulmonary/Respiratory: Chest non-tender. Clear bilateral breath sounds Cardiovascular/Chest: Regular rate and rhythm. No murmurs. No JVD. Peripheral Pulses: 2+ Radial (R). 2+ Radial (L). 2+ Pedal (R). 2+ Pedal (L) Abdominal Exam: Normal bowel sounds. Soft. Nontender. No hepatospenomegaly. No masses Ankle Exam: Negative ankle edema Lower extremities: Negative lower extremity edema Neuro/Mental Status: A&O x4. Coherent Thoughts/Psych: Normal thought pattern. Appropriate mood and affect. Good judgement and insight Appearance: In no acute distress Skin Exam: Normal inspection. Normal color. Warm. Dry laboratory and microbiology Laboratory Tests 07/02/24 17:59 Test 07/02/24 17:59 Range/Units Serum Glucose 93 74-106 mg/dL Problem List/Assessment/Plan Problem List/Assessment/Plan #Hypertensive urgency -resume home medication amlodipine 5 mg p.o. daily. Blood pressure normalized. -can restart home medication if needed. -IV enalaprilat and IV hydralazine given -resume home meds -ekg, trops -BMP, urine protein -head CT: No acute intracranial abnormality #s/p Thyroid surgery -TSH: 0.75, free T4 within normal limits. #DM2 HGB A1c 6.5 -monitor BS #Sleep apnea -nocturnal CPAP PUD prophylaxis with Protonix DVT prophylaxis with Lovenox Goals of care discussed greater than 22 minutes, full code status. Plan discussed with Dr. Hernandez Plan discussed with: Patient, Other (rn) My Orders My Orders Orders - ZOHRA LOVE RESIDENT Procedure Category Date Status Time Head Without Contrast CT 07/03/24 Resulted 09:48 Pantoprazole Tablet PHA 07/04/24 In Process (Protonix Tablet) 06:00 Acetaminophen Tablet PHA 07/03/24 In Process (Tylenol Tablet) 10:00 Enoxaparin Sodium PHA 07/03/24 In Process (Lovenox) 10:00 Cardiac DIET 07/03/24 Transmitted Diet-2gna,Lofat,Lochol Lunch Aspirin Tablet PHA 07/04/24 In Process 10:00 Ibuprofen Tablet PHA 07/03/24 In Process (Motrin Tablet) 11:45 Discontinue Tele [facility] 07/03/24 In Process 15:02 Transfer Orders XFER 07/03/24 Transmitted 15:02 Date of Service: Jul 03, 2024 Billing Provider: COLLIN HERNANDEZ MD Common Visit Codes: [id number] INP/OBS CARE(HIGH) ZOHRA LOVE RESIDENT Jul 03, 2024 16:30 COLLIN HERNANDEZ MD Jul 03, 2024 18:31
[2024-07-03] MEDS: ENALAPRILAT 1.25 MG/ML-1ML VIAL IV PRN (16:53)
[2024-07-03] MEDS: ACETAMINOPHEN 325 MG TAB PO PRN (18:21)
[2024-07-03] MEDS ORDERED: hydrALAZINE HCL 20 MG/ML VL IV PRN (22:45)
[2024-07-04] VITALS (8 sets, daily range): BP systolic 126–189; BP diastolic 58–78; PULSE 67–77; RESP 15–20; TEMP 97.9–98.6; O2SAT 95–100
[2024-07-04 01:46] LABS: Protein, Urine 9.3 mg/dL (1-14)
[2024-07-04 01:49] LABS: Creatinine, Urine 71.76 mg/dL (30.0-125.0); Urine Protein/Creatinine Ratio 0.13
[2024-07-04] MEDS: PANTOPRAZOLE 40 MG TAB PO SCH (05:22)
[2024-07-04] MEDS: cloNIDine HCL 0.1 MG TAB PO ONE (08:29)
[2024-07-04] MEDS: ASPirin 81 mg TAB PO SCH (09:00)
--- NOTE | 2024-07-04 10:42 | DVHPNRES ---
Progress Note Date Seen: Jul 04, 2024 Resident Creating Document: ZOHRA LOVE RESIDENT Medical Necessity Reason Pt with a Central, PICC or Fol: No Subjective Review of Systems 83 F with PMH of HTN, thyroid ds s/p surgery, DM2, sleep apnea uses CPAP at home, presented with complaints of dizziness, N/V, dyspnea. pt was found to be in hypertensive crisis in the ER. Presented with similar complaints yesterday in the ER, was discharged on amlodipine but could not take the medications. pt was given IV hydralazine in the ER but BP is still in the hypertensive crisis range mentioned headache, but denied seizures, cough, hemoptysis, diarrhea. PMH HTN, thyroid ds s/p surgery, DM2, sleep apnea uses CPAP at home PSH Denied recent surgery Family history non significant Social history denied smoking, alcohol, marijuana, and any other recreational intake Medication history Alisartan Clonidine atenolol amlodipine Patient seen and examined at bedside. Patient is still complaining of mild headache. Blood pressure is under control. Patient advised to bring her home medication . Patient denying any other complaints including motor weakness, sensory deficits, chest pain, shortness of breath, any other symptoms. ROS Eyes: No Pain, No Vision change, No Conjunctivae inflammation, No Eyelid inflammation, No Other, No Redness ENT: No Ear pain, No Ear discharge, No Nose pain, No Nose discharge, No Nose congestion, No Mouth pain, No Mouth swelling, No Throat pain, No Throat swelling, No Other Cardiovascular: No Chest Pain, No Palpitations, No Orthopnea, No Paroxysmal Noc. Dyspnea, No Edema, No Lt Headedness, No Other Respiratory: No Cough, No Dry, No Shortness of breath, No SOB with excertion, No Wheezing, No Hemoptysis, No Pleuritic Pain, No Sputum, No Other Gastrointestinal: No Nausea, No Vomiting, No Abdominal Pain, No Diarrhea, No Constipation, No Melena, No Hematochezia, No Other Genitourinary: No Dysuria, No Frequency, No Incontinence, No Hematuria, No Retention, No Other Musculoskeletal: No other, No neck pain, No shoulder pain, No arm pain, No back pain, No hand pain, No leg pain, No foot pain Skin: No Rash, No Lesions, No Jaundice, No Bruising, No Other Objective vital signs Vital Sign Date Time Temp Pulse Resp B/P (MAP) Pulse Ox O2 Delivery O2 Flow Rate FiO2 07/04/24 10:19 74 152/75 (100) 07/04/24 09:00 97.9 16 95 97.9 07/04/24 08:00 Room Air* 0 21 Total Intake and Output 07/03/24 07/03/24 07/04/24 15:00 23:00 07:00 Intake Total 1061 ml 669 ml 575 ml Balance 1061 ml 669 ml 575 ml medications Current Medications Medications Dose Ordered Sig/Rosa Route Start Time Stop Time Status Last Admin Dose Admin Amlodipine Besylate 5 mg DAILY PO 07/03/24 10:00 07/03/24 09:49 5 MG Enalaprilat 1.25 mg Q6HP PRN IV 07/03/24 06:30 07/04/24 05:22 1.25 MG Pantoprazole Sodium 40 mg DAILY@0600 PO 07/04/24 06:00 07/04/24 05:22 40 MG Acetaminophen 650 mg Q6HPRN PRN PO 07/03/24 10:00 07/03/24 18:21 650 MG Enoxaparin Sodium 40 mg DAILY SC 07/03/24 10:00 07/04/24 09:01 40 MG Aspirin 81 mg DAILY PO 07/04/24 10:00 07/04/24 09:00 81 MG Ibuprofen 600 mg Q8HP PRN PO 07/03/24 11:45 07/04/24 00:47 600 MG Hydralazine HCl 10 mg Q6HP PRN IV 07/03/24 22:45 Clonidine HCl 0.2 mg BID@0800,2000 PO 07/04/24 20:00 Examination General Appearance: Cooperative. Well developed. Well nourished. NAD Head Exam: Normal inspection Neck Exam: Normal inspection. Non-tender. Normal alignment Pulmonary/Respiratory: Chest non-tender. Clear bilateral breath sounds Cardiovascular/Chest: Regular rate and rhythm. No murmurs. No JVD. Peripheral Pulses: 2+ Radial (R). 2+ Radial (L). 2+ Pedal (R). 2+ Pedal (L) Abdominal Exam: Normal bowel sounds. Soft. Nontender. No hepatospenomegaly. No masses Ankle Exam: Negative ankle edema Lower extremities: Negative lower extremity edema Neuro/Mental Status: A&O x4. Coherent Thoughts/Psych: Normal thought pattern. Appropriate mood and affect. Good judgement and insight Appearance: In no acute distress Skin Exam: Normal inspection. Normal color. Warm. Dry laboratory and microbiology Laboratory Tests 07/02/24 17:59 Test 07/02/24 17:59 Range/Units Serum Glucose 93 74-106 mg/dL Problem List/Assessment/Plan Problem List/Assessment/Plan #Hypertensive urgency -resume home medication amlodipine 5 mg p.o. daily. Clonidine 0.2 mg p.o. b.i.d., restart home medication EDARBI. -IV enalaprilat and IV hydralazine PRN -resume home meds -ekg, trops -BMP, urine protein -head CT: No acute intracranial abnormality #s/p Thyroid surgery -TSH: 0.75, free T4 within normal limits. #DM2 HGB A1c 6.5 -monitor BS #Sleep apnea -nocturnal CPAP PUD prophylaxis with Protonix DVT prophylaxis with Lovenox Goals of care discussed greater than 22 minutes, full code status. Plan discussed with Dr. Hernandez Plan discussed with: Patient, Other (RN) My Orders My Orders Orders - ZOHRA LOVE Procedure Category Date Status Time Cardiac DIET 07/03/24 Transmitted Diet-2gna,Lofat,Lochol Lunch Aspirin Tablet PHA 07/04/24 In Process 10:00 Ibuprofen Tablet PHA 07/03/24 In Process (Motrin Tablet) 11:45 Discontinue Tele [facility] 07/03/24 In Process 15:02 Transfer Orders XFER 07/03/24 Transmitted 15:02 Clonidine Hcl Tablet PHA 07/04/24 In Process (Catapres Tablet) 20:00 Date of Service: Jul 04, 2024 Billing Provider: COLLIN HERNANDEZ MD Common Visit Codes: [id number] INP/OBS CARE(HIGH) ZOHRA LOVE RESIDENT Jul 04, 2024 10:42 COLLIN HERNANDEZ MD Jul 04, 2024 17:14
[2024-07-04] MEDS ORDERED: OMEP1CAP70 PO (11:34)
[2024-07-04] MEDS ORDERED: METF-1145 PO (11:34)
[2024-07-04] MEDS ORDERED: IBUP1TAB4 PO (11:37)
[2024-07-04] MEDS ORDERED: LEVO50TA7 PO (11:37)
[2024-07-04] MEDS ORDERED: CLON0.1T PO (11:37)
[2024-07-04] MEDS ORDERED: ROSU10TA64 PO (11:39)
[2024-07-04] MEDS ORDERED: IBUP1TAB5 PO (11:41)
[2024-07-04] MEDS: NIFEdipine ER 30 MG TAB PO ONE (13:52)
[2024-07-04] MEDS: cloNIDine HCL 0.1 MG TAB PO SCH (20:46)
[2024-07-05 01:00] VITALS: BP 126/68; PULSE 85; RESP 14; TEMP 97.8; O2SAT 94
[2024-07-05 05:00] VITALS: BP_SYST 109; BP_SYST 118; BP_DIAS 51; BP_DIAS 67; PULSE 74; RESP 15; TEMP 97.7; TEMP 97.8; O2SAT 92; O2SAT 95
[2024-07-05] MEDS: EDARBI 80 MG PO SCH (08:40)
[2024-07-05 08:57] LABS: Basophils # (auto) 0 10 ^3/uL (0-0.2); Basophils % (auto) 0.4 % (0.0-2.0); Eosinophils # (auto) 0 10 ^3/uL (0-0.8); Eosinophils % (auto) 0.5 % (0.0-7.0); Hematocrit 42.9 % (36.0-46.0); Hemoglobin 13.9 g/dL (12.2-16.2); Lymphocytes # (auto) 1.7 10 ^3/uL (0.4-5.4); Lymphocytes % (auto) 24.8 % (10.0-50.0); Mean Corpuscular Hemoglobin 27.9 pg (28.0-32.0); Mean Corpuscular Hgb Conc. 32.4 g/dL (32.0-36.0); Monocytes # (auto) 0.4 10 ^3/uL (0-1.3); Monocytes % (auto) 5.4 % (0.0-12.0); Neutrophils # (auto) 4.7 10 ^3/uL (1.6-8.6); Neutrophils % (auto) 68.9 % (37.0-80.0); Platelet Count (auto) 230 10^3/uL (140-450); Red Blood Cells 4.98 10^6/uL (4.0-5.20); Red Cell Distribution Width 14.8 % (11.8-14.3); White Blood Cell 6.8 10^3/uL (4.4-10.8)
[2024-07-05 09:00] VITALS: BP 98/58; PULSE 75; RESP 16; TEMP 98.1; O2SAT 93
[2024-07-05] MEDS ORDERED: NIFE1TAB31 PO (09:07)
[2024-07-05] MEDS ORDERED: ASPI-325 PO (09:07)
[2024-07-05 09:18] VITALS: BP 140/68; PULSE 88; RESP 16; TEMP 98.8; O2SAT 98
[2024-07-05 09:49] VITALS: BP 122/60
[2024-07-05] MEDS: NIFEdipine ER 30 MG TAB PO SCH (10:00)
[2024-07-05 10:35] LABS: Anion Gap 11 (5-15); Calcium 10.1 mg/dL (8.7-10.4); Carbon Dioxide 21 mmol/L (20-31); Chloride 106 mmol/L (98-107); Potassium 3.7 mmol/L (3.5-5.1); Sodium 138 mmol/L (136-145)
[2024-07-05 10:41] LABS: BUN/Creatinine Ratio 10.6 (10.0-20.0); Blood Urea Nitrogen 14 mg/dL (9-23)
[2024-07-05 10:42] LABS: Glucose 158 mg/dL (74-106)
== END 2024-07-05 11:05 | disposition home or self-care (01) | DRG 305 ==
LOC: ER 16:17 → OVERFLOW 07-03 02:00 → TELE-WESTW 07-03 09:07 → WEST WING 07-04 02:02
PROVIDERS: ADMIT Internal Medicine; ATTEND Internal Medicine
DX: I16.0 Hypertensive urgency (principal); E11.9 Type 2 diabetes mellitus without complications; G47.30 Sleep apnea, unspecified; Z79.899 Other long term (current) drug therapy
CPT/HCPCS: 36415; 70450; 71045; 71046; 80048; 80053; 81001; 82040; 82306; 82570; 83036; 83970; 84156; 84439; 84443; 84484; 85025; 93005; 96374; 99291; G0378

== ENCOUNTER 2025-01-16 23:43 | Inpatient (IN) | payer MEDICARE, MEDICAID ==
[~2025-01-16] VITALS: Ht 157.5 cm; Wt 80.8 kg
[~2025-01-16 23:43] MED LIST changes: -AMLO1TAB22 PO; +ASPI-325 PO; +CLON0.1T PO; +IBUP1TAB5 PO; +LEVO50TA7 PO; +METF-1145 PO; +NIFE1TAB31 PO; +OMEP1CAP70 PO; +ROSU10TA64 PO
[2025-01-17 00:50] LABS: Hematocrit 44.7 % (36.0-46.0); Hemoglobin 14.6 g/dL (12.2-16.2); Mean Corpuscular Hemoglobin 27.9 pg (28.0-32.0); Mean Corpuscular Volume 85.7 fL (80.0-100.0); Nucleated Red Blood Cells % 0.0 %
[2025-01-17 00:59] LABS: Chloride 105 mmol/L (98-107); Potassium 4.0 mmol/L (3.5-5.1); Sodium 141 mmol/L (136-145)
[2025-01-17 01:00] LABS: Anion Gap 13 (5-15); Calcium 9.9 mg/dL (8.7-10.4); Carbon Dioxide 23 mmol/L (20-31)
[2025-01-17 01:05] LABS: BUN/Creatinine Ratio 11.3 (10.0-20.0); Blood Urea Nitrogen 11 mg/dL (9-23)
[2025-01-17 01:18] LABS: Glucose 158 mg/dL (74-106)
--- NOTE | 2025-01-17 02:09 | DVH ---
CHEST RADIOGRAPH Indication: Cough, shortness of breath Technique: Single frontal view of the chest was obtained COMPARISON: XY CHEST TWO VIEWS ROUTINE on DOS: 07/02/24, XY CHEST PORTABLE on DOS: 07/01/24 FINDINGS: Lines and Tubes: None Lungs: Clear Pleura: No effusion. No pneumothorax. Cardiomediastinal contours: Unremarkable Bones: Unremarkable IMPRESSION: 1. No acute disease.
--- NOTE | 2025-01-17 02:15 | ED.PDOC ---
GI ASSESSMENT HPI Comments 84 year old female presents to the ED via EMS with a chief complaint of nausea/vomiting onset yesterday. Per EMS, patient woke up yesterday experiencing nausea, vomiting, diarrhea, congestion, fever highest of 101 F, and generalized weakness. Patient noticed symptoms worsened, called 911. Denies chest pain, shortness of breath, dysuria, hematuria, hematemesis, hemoptysis dizziness, headache, blurred vision, numbness/tingling. No other symptoms or modifying factors present at this time. Chief Complaint: Flu like Time Seen by MD: 02:00 Primary Care Provider: DENIES Reviewed Notes: Medications, Allergies Allergies: Coded Allergies: Codeine (Verified Allergy, Severe, 02/26/19) Home Meds Active Scripts Nifedipine (Nifedipine Er) 30 Mg Tab, 60 MG PO DAILY for 30 Days, #60 TAB Prov:ZOHRA LOVE RESIDENT 07/05/24 Aspirin (Aspirin Low Dose) 81 Mg Tab, 81 MG PO DAILY for 30 Days, #30 TAB Prov:ZOHRA LOVE RESIDENT 07/05/24 Reported Medications Losartan Potassium (Losartan Potassium) 100 Mg Tab, 100 MG PO DAILY for 30 Days, MG 01/17/25 Atenolol (Atenolol) 50 Mg Tab, 50 MG PO BID for 30 Days, MG 01/17/25 Amlodipine Besylate (Amlodipine Besylate) 5 Mg Tab, 5 MG PO DAILY for 30 Days, MG 01/17/25 Ibuprofen Micronized (Ibuprofen) 600 Mg Tab, 1 TAB PO BID 07/04/24 Rosuvastatin Calcium (Rosuvastatin Calcium) 10 Mg Tab, 1 TAB PO DAILY 07/04/24 Levothyroxine Sodium (Levothyroxine Sodium) 50 Mcg Tab, 1 TAB PO DAILY 07/04/24 Omeprazole (Omeprazole Dr) 20 Mg Cap, 1 CAP PO BID 07/04/24 Metformin Hydrochloride (Metformin Hcl Er) 500 Mg Tab, 1 TAB PO TID 07/04/24 Information Source: Patient, Relative Mode of Arrival: Ambulatory Timing: Days Duration: Since onset Prehospital treatment: None Severity: Moderate Recent: None Recent Hx of: None Associated sign and symptoms: Nausea, Vomiting, Diarrhea, Fever Vital Signs Vital Signs Date Time Temp Pulse Resp B/P (MAP) Pulse Ox O2 Delivery O2 Flow Rate FiO2 01/16/25 23:54 99.2 92 18 147/57 96 99.2 Physical Exam PHYSICAL EXAM: General: Awake, alert and oriented. No acute distress. Skin: Skin in warm, dry and intact. Appropriate color for ethnicity. HEENT: The head is normocephalic and atraumatic. Conjunctivae are clear without exudates or hemorrhage. Sclera is non-icteric. EOM are intact. No signs of nystagmus. Eyelids are normal in appearance without swelling or lesions. Oral mucosa is pink and moist Neck: The neck is supple with normal range of motion. No JVD. Cardiac: Heart rate and rhythm are normal. No murmurs, gallops, or rubs are auscultated. Respiratory: No signs of respiratory distress. Lung sounds are clear in all lobes bilaterally without rales, rhonchi, or wheezes. Abdominal: Abdomen is soft, generally-tender without distention, guarding or rigidity. Bowel sounds are present and normoactive in all four quadrants. Extremities: Upper and lower extremities are atraumatic in appearance without deformity or edema. Neurological: The patient is awake, alert and oriented to person, place, and time with normal speech. Speech is clear. There is no facial asymmetry. Psychiatric: Appropriate mood and affect. Good judgement and insight. 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 Was a procedure done?: No GI differential Dx Differential Diagnosis: Other (Differential diagnoses considered include: Abdominal aortic aneurysm, CO, esophageal rupture, intestinal obstruction, mesenteric ischemia, perforated viscus or solid organ rupture, CHF with hepatomegaly, pneumonia, abscess, appendicitis, biliary disease, diverticulitis, gastritis, gastroenteritis, hepatitis, hernia, inflammatory bowel disease, pancreatitis, peptic ulcer disease, urinary tract infection, ureteral colic, constipation, GERD, irritable syndrome, abdominal wall pain, nonspecific abdominal pain, herpes zoster, nephrolithiasis.) X-Ray, Labs, Meds, VS Vital Signs Date Time Temp Pulse Resp B/P (MAP) Pulse Ox O2 Delivery O2 Flow Rate FiO2 01/16/25 23:54 99.2 92 18 147/57 96 99.2 Lab Test 01/17/25 05:00 01/17/25 00:32 Range/Units Influenza Type A Antigen Negative Negative Influenza Type B Antigen Negative Negative SARS-CoV-2 Antigen (Rapid) Negative NEGATIVE White Blood Count 11.0 H 4.4-10.8 10^3/uL Red Blood Count 5.22 H 4.0-5.20 10^6/uL Hemoglobin 14.6 12.2-16.2 g/dL Hematocrit 44.7 36.0-46.0 % Mean Corpuscular Volume 85.7 80.0-100.0 fL Mean Corpuscular Hemoglobin 27.9 L 28.0-32.0 pg Mean Corpuscular Hemoglobin Concent 32.6 32.0-36.0 g/dL Red Cell Distribution Width 14.0 11.8-14.3 % Platelet Count 246 140-450 10^3/uL Mean Platelet Volume 8.7 6.9-10.8 fL Neutrophils (%) (Auto) 95.3 H 37.0-80.0 % Lymphocytes (%) (Auto) 3.1 L 10.0-50.0 % Monocytes (%) (Auto) 1.5 0.0-12.0 % Eosinophils (%) (Auto) 0.0 0.0-7.0 % Basophils (%) (Auto) 0.1 0.0-2.0 % Neutrophils # (Auto) 10.4 H 1.6-8.6 10 ^3/uL Lymphocytes # (Auto) 0.3 L 0.4-5.4 10 ^3/uL Monocytes # (Auto) 0.2 0-1.3 10 ^3/uL Eosinophils # (Auto) 0 0-0.8 10 ^3/uL Basophils # (Auto) 0 0-0.2 10 ^3/uL Nucleated Red Blood Cells 0.0 % Sodium Level 141 136-145 mmol/L Potassium Level 4.0 3.5-5.1 mmol/L Chloride Level 105 98-107 mmol/L Carbon Dioxide Level 23 20-31 mmol/L Anion Gap 13 5-15 Blood Urea Nitrogen 11 9-23 mg/dL Creatinine 0.97 0.550-1.02 mg/dL Glomerular Filtration Rate Calc 58 >90 mL/min BUN/Creatinine Ratio 11.3 10.0-20.0 Serum Glucose 158 H 74-106 mg/dL Calcium Level 9.9 8.7-10.4 mg/dL Troponin I High Sensitivity 12 </=34 ng/L B-Type Natriuretic Peptide 19.01 0-100 pg/mL Lipase 27 12-53 U/L [facility] [id number] [place] [id number] Ph: [phone] DIAGNOSTIC IMAGING Diagnostic Imaging Report : [id number] Signed PATIENT: EMERSON BAEZA ACCT: [id number] UNIT: [id number] : 1940 LOC: ER ROOM / BED: / AGE / SEX: 84 / F ADM STATUS: REG ER SERVICE ORDERING PHYSICIAN: MANDA JONES MD PROCEDURE(s): CXR1 - CHEST XRAY 1 VIEW REASON: Cough, shortness of breath ORDER NUMBER(s): [id number], ACCESSION NUMBER(s): [id number] CHEST RADIOGRAPH Indication: Cough, shortness of breath Technique: Single frontal view of the chest was obtained COMPARISON: XY CHEST TWO VIEWS ROUTINE on DOS: 07/02/24, XY CHEST PORTABLE on DOS: 07/01/24 FINDINGS: Lines and Tubes: None Lungs: Clear Pleura: No effusion. No pneumothorax. Cardiomediastinal contours: Unremarkable Bones: Unremarkable IMPRESSION: 1. No acute disease. ATED BY: DANDRE MCDERMOTT MD DICTATED DATE/TIME: 01/17/25205 SIGNED BY: DANDRE MCDERMOTT MD SIGNED DATE/TIME: 01/17/25205 CC: Time of 1ST Reevaluation: 02:30 Reevaluation 1ST: Unchanged Patient Education/Counseling: Other (Need for admission) Family Education/Counseling: Other (Need for admission) SEPSIS Sepsis Screen Date sepsis recognized/suspect: Jan 16, 2025 Time Sepsis recognized/suspect: 2357 Recent Procedure: No On Antibiotic Therapy: No Respiratory Rate >20: No Heart Rate >90: No Temp<36 C (96.8 F) or >38.3 C: No SBP <90 or MAP <65 mmHG: No New Acute Mental Status Change: No Is the patient on CPAP, BIPAP,: No Physician Orders Chest Xray 1 View (01/17/25 00:19) Ct Ab Pel Wo Con-No Oral Or Iv (01/17/25 02:33) Vital Signs Date Time Temp Pulse Resp B/P (MAP) Pulse Ox O2 Delivery O2 Flow Rate FiO2 01/16/25 23:54 99.2 92 18 147/57 96 99.2 Laboratory Tests Test 01/17/25 00:32 White Blood Count 11.0 10^3/uL (4.4-10.8) H Departure 1 Departure Time of Disposition: 04:09 Impression: Primary Impression: Nausea & vomiting Additional Impressions: Abdominal pain Leukocytosis Disposition: ADMITTED INPATIENT Condition: Stable Comments MDM: Patient admitted to hospitalist service for further treatment, evaluation and monitoring. Critical Care Note Critical Care Time?: No Stability Stability form required: No Heart Score Heart Score: Heart Score Response (Comments) Value History N/A 0 EKG N/A 0 Age N/A 0 Risk Factors N/A 0 Troponin N/A 0 Total 0 I personally scribed for MANDA JONES MD ([email or web address]) on 01/17/25 at 02:15. Electronically submitted by Nia Dick ([email or web address]). I personally scribed for MANDA JONES MD ([email or web address]) on 01/17/25 at 02:16. Electronically submitted by Nia Dick ([email or web address]). MANDA JONES MD Jan 17, 2025 02:15
--- NOTE | 2025-01-17 04:12 | DVH ---
Exam: CT CT AB PEL WO CON-NO ORAL OR IV History: Abdominal pain, nausea, vomiting, diarrhea. Comparison Study: None Technique: Multidetector spiral CT of the abdomen and pelvis was performed from lung bases to pubic s ymphysis. Imaging was performed without intravenous contrast. Coronal and sagittal multiplanar reform ats were obtained from the axial data set by the technologist. Radiation Dose : 1. Abdomen/Pelvis: CTDIvol 7.66 mGy, DLP 453.63 mGy*cm. Findings: Evaluation of vasculature and solid organs is limited due to lack of intravenous contrast use. Lung Bases: Lung bases are clear. Visualized portions of the heart and pericardium are unremarkable. Liver: The liver is normal in size. No focal lesions. Diffusely hypoattenuating liver parenchyma con sistent with hepatic steatosis. Gallbladder and Biliary Tree: The gallbladder is underdistended. No intrahepatic or extrahepatic bili luis ductal dilatation. Spleen: Unremarkable Pancreas: The pancreas is grossly unremarkable. Adrenal Glands: Unremarkable Kidneys: Nonobstructive left renal calculus measures 3 mm. There are bilateral exophytic hyperdense renal lesions likely reflecting hemorrhagic or proteinaceous cysts measuring up to 10 mm in the left kidney and 11 mm in the right kidney. No hydronephrosis. GI tract: The stomach is grossly normal in appearance. No evidence of small bowel wall thickening or abnormal dilatation to suggest bowel obstruction. Colonic diverticulosis without acute diverticulitis . The appendix is not visualized, however no inflammatory changes in the right lower quadrant to sugg est acute appendicitis. Peritoneum/mesentery/retroperitoneum. No evidence of free intraperitoneal air. No ascites. No evidenc e of suspicious lymphadenopathy. Abdominal Wall: Unremarkable. Vasculature: The visualized abdominal aorta is normal in size and caliber. Evaluation of abdominal a nd pelvic vessels is limited due to lack of intravenous contrast. Urinary Bladder: Grossly unremarkable for degree of distention. Pelvic Organs: Unremarkable Musculoskeletal: No aggressive focal bony lesions, acute fractures or dislocation. Buttock soft tissu es. Soft tissues: There is a generator in the right buttock soft tissues. The neurostimulator leads termi mayco in the midthoracic spine. IMPRESSION: 1. No acute abdominopelvic abnormalities. 2. Nonobstructive left renal calculus measures 3 mm. 3. Colonic diverticulosis without acute diverticulitis. 4. Hepatic steatosis.
[2025-01-17 06:01] LABS: COVID19 ANTIGEN SOFIA FIA NEGATIVE (NEGATIVE)
[2025-01-17] MEDS ORDERED: DEXTROSE (50%) 50ML SYRG IV PRN (07:30)
--- NOTE | 2025-01-17 07:30 | DVHHP2 ---
History of Present Illness Reason for Visit: Abdominal pain with nausea and vomiting History of Present Illness Zoya Flores is an 84-year-old female with past medical history of diverticulosis, ulcerative colitis, diabetes, hypertension, seizures, thyroid disease status post thyroidectomy, sleep apnea on CPAP at night, leaky heart valve, back stimulator, chronic back pain, left shoulder surgery, and hysterectomy who reports to the ED with abdominal pain, nausea, and vomiting that started yesterday at 10:00 a.m. Patient reports that she has been vomiting nonstop every hour food contents and yellowish emesis. Patient reports that it started 1 hour after she ate a toast with tea and scrambled eggs that her caregiver at home made for her. Patient reports that she ambulates with a cane and lives at home alone. She reports that she is compliant with her medications. She also reports that she fell 2 years ago and hit the right side of her body but denies any loss of consciousness or head strike. Patient denies any recent travels, recent sick contacts, chest pain, shortness of breath, fever, chills, lightheadedness, dizziness, diarrhea, or urinary symptoms. 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 King regarding the leaky heart valve and no plans for surgery. 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 Grandmother with breast cancer. Dad with heart disease. Brother with leaking heart valve.) Smoke: No ALCOHOL: none Drugs: None Lives: Alone Domestic Violence: Neg Review of Systems Gastrointestinal: Nausea, Vomiting, Abdominal Pain Allergies: Coded Allergies: Codeine (Verified Allergy, Severe, 02/26/19) Penicillins (Verified Allergy, Severe, 02/26/19) Exam Vital Signs Vital Signs Date Time Temp Pulse Resp B/P (MAP) Pulse Ox O2 Delivery O2 Flow Rate FiO2 01/16/25 23:54 99.2 92 18 147/57 96 99.2 General Appearance: Alert, Oriented X3, Cooperative, No acute distress HEENT: Atraumatic, PERRLA, EOMI, Mucous membr. moist/pink Respiratory: Clear to auscultation, Normal air movement Cardiovascular: Regular rate, Normal S1, Normal S2 Abdominal: Normal bowel sounds, Soft Extremities: No clubbing, No cyanosis Skin: No significant lesion Neuro: Normal speech, Normal tone, Sensation intact Psych/Mental Status: Mental status NL, Mood NL Labs/Xrays Labs Test 01/17/25 05:00 01/17/25 00:32 Range/Units Influenza Type A Antigen Negative Negative Influenza Type B Antigen Negative Negative SARS-CoV-2 Antigen (Rapid) Negative NEGATIVE White Blood Count 11.0 H 4.4-10.8 10^3/uL Red Blood Count 5.22 H 4.0-5.20 10^6/uL Hemoglobin 14.6 12.2-16.2 g/dL Hematocrit 44.7 36.0-46.0 % Mean Corpuscular Volume 85.7 80.0-100.0 fL Mean Corpuscular Hemoglobin 27.9 L 28.0-32.0 pg Mean Corpuscular Hemoglobin Concent 32.6 32.0-36.0 g/dL Red Cell Distribution Width 14.0 11.8-14.3 % Platelet Count 246 140-450 10^3/uL Mean Platelet Volume 8.7 6.9-10.8 fL Neutrophils (%) (Auto) 95.3 H 37.0-80.0 % Lymphocytes (%) (Auto) 3.1 L 10.0-50.0 % Monocytes (%) (Auto) 1.5 0.0-12.0 % Eosinophils (%) (Auto) 0.0 0.0-7.0 % Basophils (%) (Auto) 0.1 0.0-2.0 % Neutrophils # (Auto) 10.4 H 1.6-8.6 10 ^3/uL Lymphocytes # (Auto) 0.3 L 0.4-5.4 10 ^3/uL Monocytes # (Auto) 0.2 0-1.3 10 ^3/uL Eosinophils # (Auto) 0 0-0.8 10 ^3/uL Basophils # (Auto) 0 0-0.2 10 ^3/uL Nucleated Red Blood Cells 0.0 % Sodium Level 141 136-145 mmol/L Potassium Level 4.0 3.5-5.1 mmol/L Chloride Level 105 98-107 mmol/L Carbon Dioxide Level 23 20-31 mmol/L Anion Gap 13 5-15 Blood Urea Nitrogen 11 9-23 mg/dL Creatinine 0.97 0.550-1.02 mg/dL Glomerular Filtration Rate Calc 58 >90 mL/min BUN/Creatinine Ratio 11.3 10.0-20.0 Serum Glucose 158 H 74-106 mg/dL Calcium Level 9.9 8.7-10.4 mg/dL Troponin I High Sensitivity 12 </=34 ng/L B-Type Natriuretic Peptide 19.01 0-100 pg/mL Lipase 27 12-53 U/L Exam: CT CT AB PEL WO CON-NO ORAL OR IV History: Abdominal pain, nausea, vomiting, diarrhea. Comparison Study: None Technique: Multidetector spiral CT of the abdomen and pelvis was performed from lung bases to pubic symphysis. Imaging was performed without intravenous contrast. Coronal and sagittal multiplanar reformats were obtained from the axial data set by the technologist. Radiation Dose : 1. Abdomen/Pelvis: CTDIvol 7.66 mGy, DLP 453.63 mGy*cm. Findings: Evaluation of vasculature and solid organs is limited due to lack of intravenous contrast use. Lung Bases: Lung bases are clear. Visualized portions of the heart and pericardium are unremarkable. Liver: The liver is normal in size. No focal lesions. Diffusely hypoattenuating liver parenchyma consistent with hepatic steatosis. Gallbladder and Biliary Tree: The gallbladder is underdistended. No intrahepatic or extrahepatic biliary ductal dilatation. Spleen: Unremarkable Pancreas: The pancreas is grossly unremarkable. Adrenal Glands: Unremarkable Kidneys: Nonobstructive left renal calculus measures 3 mm. There are bilateral exophytic hyperdense renal lesions likely reflecting hemorrhagic or proteinaceous cysts measuring up to 10 mm in the left kidney and 11 mm in the right kidney. No hydronephrosis. GI tract: The stomach is grossly normal in appearance. No evidence of small bowel wall thickening or abnormal dilatation to suggest bowel obstruction. Colonic diverticulosis without acute diverticulitis. The appendix is not visualized, however no inflammatory changes in the right lower quadrant to suggest acute appendicitis. Peritoneum/mesentery/retroperitoneum. No evidence of free intraperitoneal air. No ascites. No evidence of suspicious lymphadenopathy. Abdominal Wall: Unremarkable. Vasculature: The visualized abdominal aorta is normal in size and caliber. Evaluation of abdominal and pelvic vessels is limited due to lack of intravenous contrast. Urinary Bladder: Grossly unremarkable for degree of distention. Pelvic Organs: Unremarkable Musculoskeletal: No aggressive focal bony lesions, acute fractures or dislocation. Buttock soft tissues. Soft tissues: There is a generator in the right buttock soft tissues. The neurostimulator leads terminate in the midthoracic spine. IMPRESSION: 1. No acute abdominopelvic abnormalities. 2. Nonobstructive left renal calculus measures 3 mm. 3. Colonic diverticulosis without acute diverticulitis. 4. Hepatic steatosis. CHEST RADIOGRAPH Indication: Cough, shortness of breath Technique: Single frontal view of the chest was obtained COMPARISON: XY CHEST TWO VIEWS ROUTINE on DOS: 07/02/24, XY CHEST PORTABLE on DOS: 07/01/24 FINDINGS: Lines and Tubes: None Lungs: Clear Pleura: No effusion. No pneumothorax. Cardiomediastinal contours: Unremarkable Bones: Unremarkable IMPRESSION: 1. No acute disease. SEPSIS Sepsis Screen Date sepsis recognized/suspect: Jan 16, 2025 Time Sepsis recognized/suspect: 2357 Recent Procedure: No On Antibiotic Therapy: No Respiratory Rate >20: No Heart Rate >90: No Temp<36 C (96.8 F) or >38.3 C: No SBP <90 or MAP <65 mmHG: No New Acute Mental Status Change: No Is the patient on CPAP, BIPAP,: No Physician Orders Chest Xray 1 View (01/17/25 00:19) Ct Ab Pel Wo Con-No Oral Or Iv (01/17/25 02:33) Vital Signs Date Time Temp Pulse Resp B/P (MAP) Pulse Ox O2 Delivery O2 Flow Rate FiO2 01/16/25 23:54 99.2 92 18 147/57 96 99.2 Laboratory Tests Test 01/17/25 00:32 White Blood Count 11.0 10^3/uL (4.4-10.8) H Assessment/Plan Assessment/Plan Assessment Intractable abdominal pain with nausea and vomiting likely gastroenteritis Generalized weakness Reported pyrexia Leukocytosis likely due to gastroenteritis Nonobstructive left renal calculus measures 3 mm Colonic diverticulosis without acute diverticulitis Hepatic steatosis History of diabetes History of hypertension History of seizures History of thyroid disease status post thyroidectomy History of sleep apnea on CPAP History of leaky valve, reports Yessenia King is her milk tanker driver History of back stimulator History of chronic back pain History of left shoulder surgery History of hysterectomy History of ulcerative colitis History of diverticulosis Plan Admit to med surge Antiemetics Pain management Antipyretics IV antibiotics-ceftriaxone CRP Hemoglobin A1c ISS and Accu-Cheks UA UDS NS 1 L given in ED CT abdomen and pelvis Lipase noted Chest x-ray Flu negative COVID negative Troponin BNP Diet IV fluids Home medications reconciled DVT prophylaxis-SCDs PUD prophylaxis-PPIs Discussed plan of care with patient and nurse [id number] Preventive counseling healthy eating habits, physical activity, and regular checkups Plan discussed with: Patient Date of Service: Jan 17, 2025 Billing Provider: MEG ROWE Common Visit Codes: [id number] INP/OBS CARE (HIGH) Secondary Visit Codes: [id number] COUNSELING IND MEG ROWE Jan 17, 2025 07:30
[2025-01-17] MEDS: SODIUM CHLORIDE 0.9% 1,000 ML IV ONE (08:22)
[2025-01-17] MEDS: ONDANSETRON HCL 4 MG/2 ML VIAL IV ONE (08:22)
[2025-01-17 08:30] VITALS: PULSE 83; RESP 17; O2SAT 93
[2025-01-17] MEDS ORDERED: PATIENTS OWN MEDICATION (Rosuvastatin Calcium 1 TAB) PO SCH (10:00)
[2025-01-17] MEDS ORDERED: PATIENTS OWN MEDICATION (Omeprazole (Omeprazole Dr) 1 CAP) PO SCH (10:00)
[2025-01-17] MEDS ORDERED: AMLO1TAB22 PO (11:01)
[2025-01-17] MEDS ORDERED: ATEN50TA PO (11:02)
[2025-01-17] MEDS ORDERED: LOSA-535 PO (11:04)
[2025-01-17] MEDS: ACCU-CHEK COMFORT CURVE STRIP VI SCH (12:05)
[2025-01-17] MEDS: ASPirin-EC 81 mg tab PO SCH (12:05)
[2025-01-17] MEDS: InsuLIN REG 1unit/0.01ml Soln (100units/ml) SC SCH (12:05)
[2025-01-17] MEDS: PANTOPRAZOLE 40 MG TAB PO SCH (12:06)
[2025-01-17] MEDS: LEVOTHYROXINE SODIUM 50 MCG TAB PO SCH (12:06)
[2025-01-17 14:14] LABS: Urine Protein, UAD 1+ (Negative)
[2025-01-17 14:24] LABS: Amphetamine Screen, Urine Neg (NEGATIVE); Barbiturate Scree,Urine Neg (NEGATIVE); Benzodiazephine Screen, Urine Neg (NEGATIVE); Cannabinoid Screen, Urine Neg (NEGATIVE); Cocaine Screen, Urine Neg (NEGATIVE); Opiate Scree,Urine Neg (NEGATIVE); Phencyclidine Screen, Urine Neg (NEGATIVE)
[2025-01-17] MEDS: SODIUM CHLORIDE 0.9% 1,000 ML IV SCH (15:26)
[2025-01-17] MEDS: ACETAMINOPHEN 325 MG TAB PO PRN (15:26)
[2025-01-17] MEDS: ONDANSETRON HCL 4 MG/2 ML VIAL IV PRN (15:27)
[2025-01-17 15:49] VITALS: O2SAT 99
[2025-01-17 16:44] VITALS: BP 126/95; PULSE 88; RESP 16; TEMP 99.5; O2SAT 92
[2025-01-17 20:00] VITALS: PULSE 83; RESP 18; O2SAT 97
[2025-01-17 20:10] VITALS: PULSE 89; RESP 16; O2SAT 95
[2025-01-17 20:44] VITALS: BP 134/57; PULSE 83; RESP 18; TEMP 98.4; O2SAT 97
[2025-01-17] MEDS ORDERED: ATENOLOL 50 MG PO SCH (22:00)
[2025-01-17] MEDS: ATORVASTATIN 20 MG TAB PO SCH (22:19)
[2025-01-17] MEDS: ATENOLOL 25 MG TAB PO SCH (22:20)
[2025-01-18] VITALS (9 sets, daily range): BP systolic 109–136; BP diastolic 56–68; PULSE 66–81; RESP 16–19; TEMP 97.5–98.9; O2SAT 90–97
[2025-01-18 07:32] LABS: Hematocrit 36.5 % (36.0-46.0); Hemoglobin 11.8 g/dL (12.2-16.2); Mean Corpuscular Hemoglobin 27.9 pg (28.0-32.0); Mean Corpuscular Volume 86.0 fL (80.0-100.0); Nucleated Red Blood Cells % 0.1 %
[2025-01-18 08:09] LABS: Alanine Aminotransferase 21 U/L (7-40); Anion Gap 9 (5-15); BUN/Creatinine Ratio 11.3 (10.0-20.0); Blood Urea Nitrogen 12 mg/dL (9-23); Carbon Dioxide 23 mmol/L (20-31); Potassium 4.0 mmol/L (3.5-5.1); Sodium 142 mmol/L (136-145); Total Protein 6.2 g/dL (5.7-8.2)
[2025-01-18 08:10] LABS: Albumin 3.8 g/dL (3.2-4.8)
[2025-01-18 08:12] LABS: Alkaline Phosphatase 47 U/L (46-116); Bilirubin, Total 0.3 mg/dL (0.2-1.0); Calcium 8.4 mg/dL (8.7-10.4); Chloride 110 mmol/L (98-107); Glucose 130 mg/dL (74-106)
[2025-01-18] MEDS ORDERED: ATENOLOL 25 MG TAB PO SCH (10:00)
[2025-01-18] MEDS ORDERED: PATIENTS OWN MEDICATION (Losartan Potassium 100 MG) PO SCH (10:00)
[2025-01-18] MEDS: LOSARTAN POTASSIUM 50 MG TAB PO SCH (10:49)
--- NOTE | 2025-01-18 17:23 | DVHINCON2 ---
Date of service: Jan 18, 2025 Referring Physician Shayy Reason for Consultation Intractable nausea and vomiting History of Present Illness The patient is an 84-year-old female with a past medical history significant for hypertension, hyperlipidemia, hypothyroidism, seizure disorder history of sleep apnea on CPAP, history of GERD, history of a leaky heart valve, admitted with multiple episodes of vomiting and intractable nausea. Patient states that she still has a queasy feeling in her stomach but her emesis is gone. She has a prior history of endoscopy and colonoscopy. Patient has nonobstructing left kidney stone. Patient states that she has a prior history of ulcerative colitis however last colonoscopy was negative. Patient was admitted with a presumed diagnosis of gastroenteritis. Past Medical History As above Past Surgical History Thyroidectomy Family History: FH: breast cancer G8 MOTHER FH: heart disease G8 FATHER FHx: mitral regurgitation G8 FATHER Family History No gastrointestinal diseases or malignancies Allergies: Coded Allergies: Codeine (Verified Allergy, Severe, 02/26/19) Home Meds Active Scripts Nifedipine (Nifedipine Er) 30 Mg Tab, 60 MG PO DAILY for 30 Days, #60 TAB Prov:ZOHRA LOVE RESIDENT 07/05/24 Aspirin (Aspirin Low Dose) 81 Mg Tab, 81 MG PO DAILY for 30 Days, #30 TAB Prov:ZOHRA LOVE RESIDENT 07/05/24 Reported Medications Losartan Potassium (Losartan Potassium) 100 Mg Tab, 100 MG PO DAILY for 30 Days, MG 01/17/25 Atenolol (Atenolol) 50 Mg Tab, 50 MG PO BID for 30 Days, MG 01/17/25 Amlodipine Besylate (Amlodipine Besylate) 5 Mg Tab, 5 MG PO DAILY for 30 Days, MG 01/17/25 Ibuprofen Micronized (Ibuprofen) 600 Mg Tab, 1 TAB PO BID 07/04/24 Rosuvastatin Calcium (Rosuvastatin Calcium) 10 Mg Tab, 1 TAB PO DAILY 07/04/24 Levothyroxine Sodium (Levothyroxine Sodium) 50 Mcg Tab, 1 TAB PO DAILY 07/04/24 Omeprazole (Omeprazole Dr) 20 Mg Cap, 1 CAP PO BID 07/04/24 Metformin Hydrochloride (Metformin Hcl Er) 500 Mg Tab, 1 TAB PO TID 07/04/24 Current Medications Current Medications Medications (Trade) Dose Ordered Sig/Rosa Route PRN Reason Start Time Stop Time Status Last Admin Atorvastatin Calcium (Lipitor) 20 mg HS PO 01/17/25 22:00 01/17/25 22:19 Patient Own Medication 50 mg BID PO 01/17/25 22:00 UNV Patient Own Medication 100 mg DAILY PO 01/18/25 10:00 UNV Metronidazole 100 ml @ 100 mls/hr Q8HR IV 01/17/25 22:00 01/18/25 12:38 Losartan Potassium (Cozaar Tablet) 100 mg DAILY PO 01/18/25 10:00 01/18/25 10:49 Atenolol (Tenormin Tablet) 50 mg DAILY PO 01/18/25 10:00 01/17/25 16:43 DC Atenolol (Tenormin Tablet) 50 mg BID PO 01/17/25 22:00 01/18/25 10:49 Review of Systems As per HPI Vital Signs Vital Signs Date Time Temp Pulse Resp B/P (MAP) Pulse Ox O2 Delivery O2 Flow Rate FiO2 01/18/25 13:00 97.7 66 17 111/56 (74) 96 97.7 01/18/25 08:00 Nasal Cannula* 2 28 Physical Exam General: Well-developed well-nourished HEENT: NC/AT EOMI PERRLA O/P clear, no JVD or cervical lymphadenopathy, no scleral icterus Heart: Regular rate and rhythm, no murmurs rubs or gallops Lungs: Clear to auscultation bilaterally, no wheezes rales or rhonchi Abdomen: Soft, mild epigastric tenderness, nondistended, no organomegaly, normoactive bowel sounds Extremity: No clubbing cyanosis or edema, no rashes or bruises Neuro: Cranial nerves 2-12 grossly intact, moves all four extremities, no aydin ixis Labs/Diagnostic Data Labs Test 01/18/25 16:06 01/18/25 06:30 01/17/25 09:00 01/17/25 08:00 Range/Units POC Glucose 101 70-106 mg/dl White Blood Count 5.3 # 4.4-10.8 10^3/uL Red Blood Count 4.24 4.0-5.20 10^6/uL Hemoglobin 11.8 #L 12.2-16.2 g/dL Hematocrit 36.5 # 36.0-46.0 % Mean Corpuscular Volume 86.0 80.0-100.0 fL Mean Corpuscular Hemoglobin 27.9 L 28.0-32.0 pg Mean Corpuscular Hemoglobin Concent 32.5 32.0-36.0 g/dL Red Cell Distribution Width 13.9 11.8-14.3 % Platelet Count 182 140-450 10^3/uL Mean Platelet Volume 8.7 6.9-10.8 fL Neutrophils (%) (Auto) 75.7 37.0-80.0 % Lymphocytes (%) (Auto) 14.2 10.0-50.0 % Monocytes (%) (Auto) 9.6 0.0-12.0 % Eosinophils (%) (Auto) 0.3 0.0-7.0 % Basophils (%) (Auto) 0.2 0.0-2.0 % Neutrophils # (Auto) 4.0 1.6-8.6 10 ^3/uL Lymphocytes # (Auto) 0.8 0.4-5.4 10 ^3/uL Monocytes # (Auto) 0.5 0-1.3 10 ^3/uL Eosinophils # (Auto) 0 0-0.8 10 ^3/uL Basophils # (Auto) 0 0-0.2 10 ^3/uL Nucleated Red Blood Cells 0.1 % Sodium Level 142 136-145 mmol/L Potassium Level 4.0 3.5-5.1 mmol/L Chloride Level 110 H 98-107 mmol/L Carbon Dioxide Level 23 20-31 mmol/L Anion Gap 9 5-15 Blood Urea Nitrogen 12 9-23 mg/dL Creatinine 1.06 H 0.550-1.02 mg/dL Glomerular Filtration Rate Calc 52 >90 mL/min BUN/Creatinine Ratio 11.3 10.0-20.0 Serum Glucose 130 H 74-106 mg/dL Calcium Level 8.4 L 8.7-10.4 mg/dL Total Bilirubin 0.3 0.2-1.0 mg/dL Aspartate Amino Transferase (AST) 28 13-40 U/L Alanine Aminotransferase (ALT) 21 7-40 U/L Alkaline Phosphatase 47 46-116 U/L Total Protein 6.2 5.7-8.2 g/dL Albumin 3.8 3.2-4.8 g/dL Urine Color Yellow Yellow Urine Clarity Turbid H Clear Urine pH 5.5 5.0-9.0 Urine Specific [place] 1.025 1.001-1.035 Urine Protein 1+ H Negative Urine Ketones Trace Negative Urine Blood Negative Negative /uL Urine Nitrite Negative Negative Urine Bilirubin Negative Negative Urine Urobilinogen Normal Negative mg/dL Urine Leukocyte Esterase Negative Negative /uL Urine RBC 15 0 - 4 /hpf Urine Microscopic WBC 17 H 0-5 /HPF Urine Squamous Epithelial Cells Few <5 /hpf Urine Bacteria Few H None Seen /hpf Urine Hyaline Casts Mod 0 - 2 /lpf Urine Mucus Few None Seen Urine Glucose Normal Normal mg/dL Urine Opiates Screen Neg NEGATIVE Urine Fentanyl Screen Neg NEGATIVE Urine Barbiturates Screen Neg NEGATIVE Urine Phencyclidine Screen Neg NEGATIVE Urine Amphetamines Screen Neg NEGATIVE Urine Benzodiazepines Screen Neg NEGATIVE Urine Cocaine Screen Neg NEGATIVE Urine Cannabinoids Screen Neg NEGATIVE Hemoglobin A1c 7.0 H <5.7 % A1C C-Reactive Protein High Sensitivity 2.02 H <1.0 mg/dL Test 01/17/25 05:00 01/17/25 00:32 Range/Units Influenza Type A Antigen Negative Negative Influenza Type B Antigen Negative Negative SARS-CoV-2 Antigen (Rapid) Negative NEGATIVE Troponin I High Sensitivity 12 </=34 ng/L B-Type Natriuretic Peptide 19.01 0-100 pg/mL Lipase 27 12-53 U/L Assessment 1. Gastroenteritis 2. Nausea and vomiting 3. Abdominal pain 4. History of ulcerative colitis 5. History of GERD and hiatal hernia Problems(with codes): (1) Hypertensive urgency (2) Accelerated hypertension (3) Leukocytosis (4) Abdominal pain (5) Nausea & vomiting Plan/Recommendation 1. Diet as tolerated 2. Antiemetics 3. IV fluids 4. No endoscopy or colonoscopy at this time 5. We will follow 6. Follow labs and replace electrolytes 7. Anti-reflux precautions Plan discussed with: Patient CHANA BENNETT MD Jan 18, 2025 17:23
[2025-01-19 01:00] VITALS: BP 118/58; PULSE 81; RESP 18; TEMP 98; O2SAT 91
[2025-01-19 05:00] VITALS: BP 109/52; PULSE 80; RESP 18; TEMP 98.2; O2SAT 91
[2025-01-19 08:00] VITALS: PULSE 73; RESP 17; O2SAT 96
[2025-01-19] MEDS ORDERED: METR-344 PO (08:20)
[2025-01-19] MEDS ORDERED: PANT40TA2 PO (08:23)
--- NOTE | 2025-01-19 08:28 | DVHPN2 ---
Subjective Patient continues to have generalized bloating with left upper quadrant abdominal pain Reviewed: Care Plan, H&P, Labs, Medications Changes from previous H/P or p: No Changes General: Per HPI Gastrointestinal: Nausea, Vomiting, Abdominal Pain Objective Vitals Vital Signs Date Time Temp Pulse Resp B/P (MAP) Pulse Ox O2 Delivery O2 Flow Rate FiO2 01/19/25 05:00 98.2 80 18 109/52 (71) 91 98.2 01/18/25 21:25 Nasal Cannula* 1 24 Intake/Output Intake and Output 01/19/25 07:00 Intake Total 1480 ml Balance 1480 ml Intake Oral 1080 ml IV Total 400 ml # Voids 5 General Appearance: Alert, Oriented X3, Cooperative, mild distress HEENT: Atraumatic, PERRLA Lungs: Clear to auscultation, Normal air movement Cardiovascular: Normal S1, Normal S2 Abdomen: Normal bowel sounds, Soft, No tenderness, No hepatospenomegaly Genitourinary: No Apparent Abnormalities Musculoskeletal: Normal sensory function, Normal motor function Neuro: Normal gait, Normal speech Skin: Dry, Intact Psych/Mental Status: Mental status NL, Mood NL Medications Current Medications Medications Dose Ordered Sig/Rosa Route Start Time Stop Time Status Last Admin Dose Admin Diagnostic Test (Pha) 1 strip ACHS 01/17/25 11:30 01/19/25 07:01 1 STRIP Insulin Human Regular ACHS SC 01/17/25 11:30 01/18/25 23:20 2 UNITS Dextrose 50 ml UD PRN IV 01/17/25 07:30 Ondansetron HCl 4 mg Q4HP PRN IV 01/17/25 07:30 01/18/25 10:47 4 MG Acetaminophen 650 mg Q6HP PRN PO 01/17/25 07:30 01/17/25 15:26 650 MG Ceftriaxone Sodium 50 ml @ 100 mls/hr DAILY@09 IV 01/17/25 09:00 01/18/25 10:46 100 MLS/HR Aspirin 81 mg DAILY PO 01/17/25 10:00 01/18/25 10:48 81 MG Clonidine HCl 0.2 mg BID PO 01/17/25 10:00 01/17/25 22:20 0.2 MG Levothyroxine Sodium 50 mcg DAILY PO 01/17/25 10:00 01/18/25 10:47 50 MCG Nifedipine 60 mg DAILY PO 01/17/25 10:00 01/18/25 10:48 60 MG Patient Own Medication 1 cap BID PO 01/17/25 10:00 UNV Patient Own Medication 1 tab DAILY PO 01/17/25 10:00 UNV Sodium Chloride 1,000 ml @ 100 mls/hr Q10H IV 01/17/25 08:30 01/18/25 12:38 100 MLS/HR Pantoprazole Sodium 40 mg DAILY PO 01/17/25 10:00 01/18/25 10:48 40 MG Atorvastatin Calcium 20 mg HS PO 01/17/25 22:00 01/18/25 22:48 20 MG Patient Own Medication 50 mg BID PO 01/17/25 22:00 UNV Patient Own Medication 100 mg DAILY PO 01/18/25 10:00 UNV Metronidazole 100 ml @ 100 mls/hr Q8HR IV 01/17/25 22:00 01/19/25 05:38 100 MLS/HR Losartan Potassium 100 mg DAILY PO 01/18/25 10:00 01/18/25 10:49 100 MG Atenolol 50 mg BID PO 01/17/25 22:00 01/18/25 10:49 50 MG Laboratory Results Laboratory Tests 01/18/25 06:30 Urinalysis Test 01/17/25 09:00 Urine Color Yellow (Yellow) Urine Clarity Turbid (Clear) H Urine pH 5.5 (5.0-9.0) Urine Specific [place] 1.025 (1.001-1.035) Urine Protein 1+ (Negative) H Urine Ketones Trace (Negative) Urine Blood Negative /uL (Negative) Urine Nitrite Negative (Negative) Urine Bilirubin Negative (Negative) Urine Urobilinogen Normal mg/dL (Negative) Urine Leukocyte Esterase Negative /uL (Negative) Urine RBC 15 /hpf (0 - 4) Urine Microscopic WBC 17 /HPF (0-5) H Urine Squamous Epithelial Cells Few /hpf (<5) Urine Bacteria Few /hpf (None Seen) H Urine Hyaline Casts Mod /lpf (0 - 2) Urine Mucus Few (None Seen) Urine Glucose Normal mg/dL (Normal) Labs and/or images reviewed: Labs reviewed by me, Image(s) reviewed by me Assessment/Plan Assessment/Plan Impression: -abdominal pain, probable gastroenteritis -obesity -primary hypertension -dyslipidemia -diabetes mellitus -history of ulcerative colitis Plan: -GI consultation -continue current antibiotic therapy -PPI -continue antiseizure medications -regular insulin sliding scale -reassess for discharge in a.m. Total time spent with patient discussing and formulating plan of care: 35 minutes. This medical document was created using an electronic medical record system with [employer] dictation system. Although this document has been carefully reviewed, there may still be some phonetic and typographical errors. These areas are purely typographical due to imperfections of the software programs, and do not reflect any compromise in the patient's medical care. 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
--- NOTE | 2025-01-19 08:32 | DVHDS2 ---
Discharge Summary Date of Admission Jan 17, 2025 at 07:16 Date of Discharge: Jan 19, 2025 Admitting Diagnosis Abdominal pain Labs/Diagnostic Data: Laboratory Results Test 01/19/25 05:45 01/18/25 06:30 01/17/25 09:00 01/17/25 08:00 POC Glucose 114 mg/dl (70-106) White Blood Count 5.3 10^3/uL (4.4-10.8) Red Blood Count 4.24 10^6/uL (4.0-5.20) Hemoglobin 11.8 g/dL (12.2-16.2) Hematocrit 36.5 % (36.0-46.0) Mean Corpuscular Volume 86.0 fL (80.0-100.0) Mean Corpuscular Hemoglobin 27.9 pg (28.0-32.0) Mean Corpuscular Hemoglobin Concent 32.5 g/dL (32.0-36.0) Red Cell Distribution Width 13.9 % (11.8-14.3) Platelet Count 182 10^3/uL (140-450) Mean Platelet Volume 8.7 fL (6.9-10.8) Neutrophils (%) (Auto) 75.7 % (37.0-80.0) Lymphocytes (%) (Auto) 14.2 % (10.0-50.0) Monocytes (%) (Auto) 9.6 % (0.0-12.0) Eosinophils (%) (Auto) 0.3 % (0.0-7.0) Basophils (%) (Auto) 0.2 % (0.0-2.0) Neutrophils # (Auto) 4.0 10 ^3/uL (1.6-8.6) Lymphocytes # (Auto) 0.8 10 ^3/uL (0.4-5.4) Monocytes # (Auto) 0.5 10 ^3/uL (0-1.3) Eosinophils # (Auto) 0 10 ^3/uL (0-0.8) Basophils # (Auto) 0 10 ^3/uL (0-0.2) Nucleated Red Blood Cells 0.1 % Sodium Level 142 mmol/L (136-145) Potassium Level 4.0 mmol/L (3.5-5.1) Chloride Level 110 mmol/L (98-107) Carbon Dioxide Level 23 mmol/L (20-31) Anion Gap 9 (5-15) Blood Urea Nitrogen 12 mg/dL (9-23) Creatinine 1.06 mg/dL (0.550-1.02) Glomerular Filtration Rate Calc 52 mL/min (>90) BUN/Creatinine Ratio 11.3 (10.0-20.0) Serum Glucose 130 mg/dL (74-106) Calcium Level 8.4 mg/dL (8.7-10.4) Total Bilirubin 0.3 mg/dL (0.2-1.0) Aspartate Amino Transferase (AST) 28 U/L (13-40) Alanine Aminotransferase (ALT) 21 U/L (7-40) Alkaline Phosphatase 47 U/L (46-116) Total Protein 6.2 g/dL (5.7-8.2) Albumin 3.8 g/dL (3.2-4.8) Urine Color Yellow (Yellow) Urine Clarity Turbid (Clear) Urine pH 5.5 (5.0-9.0) Urine Specific [place] 1.025 (1.001-1.035) Urine Protein 1+ (Negative) Urine Ketones Trace (Negative) Urine Blood Negative /uL (Negative) Urine Nitrite Negative (Negative) Urine Bilirubin Negative (Negative) Urine Urobilinogen Normal mg/dL (Negative) Urine Leukocyte Esterase Negative /uL (Negative) Urine RBC 15 /hpf (0 - 4) Urine Microscopic WBC 17 /HPF (0-5) Urine Squamous Epithelial Cells Few /hpf (<5) Urine Bacteria Few /hpf (None Seen) Urine Hyaline Casts Mod /lpf (0 - 2) Urine Mucus Few (None Seen) Urine Glucose Normal mg/dL (Normal) Urine Opiates Screen Neg (NEGATIVE) Urine Fentanyl Screen Neg (NEGATIVE) Urine Barbiturates Screen Neg (NEGATIVE) Urine Phencyclidine Screen Neg (NEGATIVE) Urine Amphetamines Screen Neg (NEGATIVE) Urine Benzodiazepines Screen Neg (NEGATIVE) Urine Cocaine Screen Neg (NEGATIVE) Urine Cannabinoids Screen Neg (NEGATIVE) Hemoglobin A1c 7.0 % A1C (<5.7) C-Reactive Protein High Sensitivity 2.02 mg/dL (<1.0) Test 01/17/25 05:00 01/17/25 00:32 Influenza Type A Antigen Negative (Negative) Influenza Type B Antigen Negative (Negative) SARS-CoV-2 Antigen (Rapid) Negative (NEGATIVE) Troponin I High Sensitivity 12 ng/L (</=34) B-Type Natriuretic Peptide 19.01 pg/mL (0-100) Lipase 27 U/L (12-53) Other Laboratory Tests 01/18/25 06:30 Brief Hx & Hospital Course: History of Present Illness Zoya Flores is an 84-year-old female with past medical history of diverticulosis, ulcerative colitis, diabetes, hypertension, seizures, thyroid disease status post thyroidectomy, sleep apnea on CPAP at night, leaky heart valve, back stimulator, chronic back pain, left shoulder surgery, and hysterectomy who reports to the ED with abdominal pain, nausea, and vomiting that started yesterday at 10:00 a.m. Patient reports that she has been vomiting nonstop every hour food contents and yellowish emesis. Patient reports that it started 1 hour after she ate a toast with tea and scrambled eggs that her caregiver at home made for her. Patient reports that she ambulates with a cane and lives at home alone. She reports that she is compliant with her medications. She also reports that she fell 2 years ago and hit the right side of her body but denies any loss of consciousness or head strike. Course of hospitalization: Patient was started on empiric antibiotic therapy and gentle IV hydration. Patient was placed on regular insulin sliding scale with continuation of CPAP, for her sleep apnea. Patient was also continued on home medications for seizure disorder. GI consultation was obtained. Recommendations reviewed. Abdominal pain has improved significantly. White blood cell count has also resolved. Patient will be discharged home and continue all previous home medications. She is instructed to continue with the antibiotic therapy in the form of Flagyl 500 mg p.o. b.i.d. for next five days as well as being placed on Protonix 40 mg p.o. daily for 30 days. Patient was agreeable with discharge plan. All questions answered. Physical examination General: Alert and Oriented x3. No acute distress. Well-nourished. Obese Eyes: EOMI. Anicteric. HENT: Moist mucous membranes. Lungs: Clear to auscultation bilaterally. No accessory muscle use. Cardiovascular: Regular rate and rhythm. No murmur. No JVD. Abdomen: Soft, non-tender and non-distended. No palpable masses. Extremities: No edema. Non-tender. Skin: No rashes or lesions. Warm. Neurologic: No focal neurological deficits. CN II-XII grossly intact, but not individually tested. Psychiatric: Cooperative. Appropriate mood and affect. Total time spent with patient discussing and formulating plan of care: 35 minutes. This medical document was created using an electronic medical record system with [employer] system. Although this document has been carefully reviewed, there may still be some phonetic and typographical errors. These areas are purely typographical due to imperfections of the software programs, and do not reflect any compromise in the patient's medical care. Condition at Discharge: Fair Final Diagnosis/Problems List Gastroenteritis Secondary diagnosis: Seizure disorder Hypothyroidism Primary hypertension Obesity Leukocytosis with sepsis ruled out Obstructive sleep apnea Discharge Disposition: Home Discharge Instruct/Medications Diet: Regular Activity: No Restrictions, As Tolerated Follow Up/Referral: Follow up with PCP in 1-2 weeks Medications: Flagyl 500 mg p.o. b.i.d. five days Protonix 40 mg p.o. daily times 30 days Scheduled Amlodipine Besylate (Amlodipine Besylate), 5 MG PO DAILY, (Reported) Aspirin (Aspirin Low Dose), 81 MG PO DAILY Atenolol (Atenolol), 50 MG PO BID, (Reported) Ibuprofen Micronized (Ibuprofen), 1 TAB PO BID, (Reported) Levothyroxine Sodium (Levothyroxine Sodium), 1 TAB PO DAILY, (Reported) Losartan Potassium (Losartan Potassium), 100 MG PO DAILY, (Reported) Metformin Hydrochloride (Metformin Hcl Er), 1 TAB PO TID, (Reported) Metronidazole (Flagyl), 1 TAB PO BID Nifedipine (Nifedipine Er), 60 MG PO DAILY Omeprazole (Omeprazole Dr), 1 CAP PO BID, (Reported) Pantoprazole Sodium Sesquihydr (Protonix), 40 MG PO DAILY Rosuvastatin Calcium (Rosuvastatin Calcium), 1 TAB PO DAILY, (Reported) 36 Discharge Statement: "Patient was advised to return to the ER or call 911 if any headaches, dizziness, shortness of breath, chest pain, abdominal pain, bleeding, fevers, or worsening of medical condition. Patient was counseled about treatment plan, medications, possible side effects, patientverbalized understanding. All questions were answered to the best of my ability. This discharge took greater then 30 minutes in planning, reviewing documentation, counseling the patient, and discussing with other team members." ASSESSMENT ASSESSMENT Assessment Gastroenteritis Date of Service: Jan 19, 2025 Billing Provider: JOHAN ORNELAS NP Common Visit Codes: [id number] DISCH DAY >30min JOHAN ORNELAS NP Jan 19, 2025 08:32
[2025-01-19 09:00] VITALS: BP 112/62; PULSE 73; RESP 17; TEMP 98.7; O2SAT 96
[2025-01-19 10:03] VITALS: BP 112/62; PULSE 73; RESP 18; TEMP 37.1; O2SAT 96
== END 2025-01-19 10:30 | disposition home or self-care (01) | DRG 373 ==
LOC: ER 23:43 → EDBD 23:43 → EEVIPCON 01-17 07:16 → OVERFLOW 01-17 07:16 → CENTRAL 01-17 15:11
PROVIDERS: ADMIT Nurse Practitioner Acute Care; ATTEND Nurse Practitioner Acute Care
PROC: 5A09357 Assistance with Respiratory Ventilation, Less than 24 Consecutive Hours, Continuous Positive Airway Pressure (ICD-10-PCS; principal; 2025-01-17)
DX: A04.9 Bacterial intestinal infection, unspecified (principal); N20.0 Calculus of kidney; K57.30 Diverticulosis of large intestine without perforation or abscess without bleeding; E11.9 Type 2 diabetes mellitus without complications; E89.0 Postprocedural hypothyroidism; Z68.31 Body mass index [BMI] 31.0-31.9, adult; Z20.822 Contact with and (suspected) exposure to COVID-19; I16.0 Hypertensive urgency; I10 Essential (primary) hypertension; G47.30 Sleep apnea, unspecified; G40.909 Epilepsy, unspecified, not intractable, without status epilepticus; E78.5 Hyperlipidemia, unspecified; E66.9 Obesity, unspecified; G89.29 Other chronic pain; K21.9 Gastro-esophageal reflux disease without esophagitis; K44.9 Diaphragmatic hernia without obstruction or gangrene; M54.9 Dorsalgia, unspecified; Z80.3 Family history of malignant neoplasm of breast; Z88.5 Allergy status to narcotic agent; Z90.710 Acquired absence of both cervix and uterus; Z88.0 Allergy status to penicillin
CPT/HCPCS: 36415; 71045; 74176; 80048; 80053; 80307; 81001; 82962; 83036; 83690; 83880; 84484; 85025; 86141; 87426; 87804; 94660; G0378; J1815; J2405; J3490